=== PATIENT | male | born 1945 | race Caucasian/White ===

== ENCOUNTER → 2018-08-22 10:25 | Outpatient (CLI) | payer MEDICARE, SELFPAY ==
[2018-08-22 12:12] LABS: PSA,Total- Diagnostic 9.09 ng/mL (0.0-4.0)
== END ==
PROVIDERS: Family Provider Preventive Medicine Occupational Medicine; PCP Preventive Medicine Occupational Medicine; Referring Provider Urology; Visit Provider Urology
DX: C61 Malignant neoplasm of prostate (principal)
CPT/HCPCS: 36415; 84153

== ENCOUNTER → 2019-02-21 09:28 | Outpatient (CLI) | payer MEDICARE, SELFPAY ==
[2019-02-21 09:58] LABS: PSA,Total- Diagnostic 9.48 ng/mL (0.0-4.0)
== END ==
PROVIDERS: Family Provider Preventive Medicine Occupational Medicine; PCP Preventive Medicine Occupational Medicine; Referring Provider Urology; Visit Provider Urology
DX: C61 Malignant neoplasm of prostate (principal)
CPT/HCPCS: 36415; 84153

== ENCOUNTER → 2019-03-17 17:11 | Outpatient (CLI) | payer MEDICARE, SELFPAY ==
--- NOTE | 2019-03-17 08:00 | PROSBIL_PTH ---
PATIENT: CAMILA DELGADO LOC: [facility] U#:[id number] AGE/SX: 79/M ROOM: RE03/17/[address]: Dr. Neil Hatch MD : 1945 BED: DIS: SPEC #: [id number] RECD: 03/17/19 18:45 STATUS: KATHY REMilagros #: [id number] MADDY: 03/17/19 08:[address]: Neil Hatch DEPT: SURGICAL PATHOLOGY RECD BY: Timi Cleaning ENTERED: 03/18/19 08:21 SP TYPE: PROST BX OTHR DR: Dr. Andrei Staton DO Tissues: A - PROSTATE RIGHT B - PROSTATE RIGHT C - PROSTATE RIGHT D - PROSTATE LEFT E - PROSTATE LEFT F - PROSTATE LEFT Procedures: PROSTATE BX Comments: Dr. Hatch's office ([place]) notified of no specimen in container A 03/19/19 11:37 a.m. HEADER OPERATION: Prostate biopsy PRE-OP DIAGNOSIS: Elevated PSA TISSUE SUBMITTED: A - Right apex, B - Right mid, C - Right base, D - Left apex, E - Left mid, F - Left base MICROSCOPIC DIAGNOSIS A. Right prostate, apex, core biopsy: No specimen is found in the container. See comment. B. Right prostate, mid, core biopsy: Prostatic adenocarcinoma: Paolo grade: 3+3=6 Number of cores involved: 1/2 Proportion of tissue involved: ~20% Perineural invasion: Not identified. Greatest tumor length: 0.5 cm C. Right prostate, base, core biopsy: Prostatic adenocarcinoma: Paolo grade: 3+3=6 Number of cores involved: 1/2 Proportion of tissue involved: ~20% Perineural invasion: Not identified. Greatest tumor length: 0.5 cm D. Left prostate, apex, core biopsy: Prostatic tissue, negative for malignancy. Focal calcifications. E. Left prostate, mid, core biopsy: Prostatic tissue, negative for malignancy. Focal atrophy and calcifications. F. Left prostate, base, core biopsy: Prostatic tissue, negative for malignancy. SJ:smooth 03/19/19 COMMENT This information is conveyed to Dr. Hatch's office on 03/19/19. Case has been reviewed in consultation with Dr. Thomas who concurs with the above diagnosis. IDC:AM MICROSCOPIC DESCRIPTION Slides are reviewed. GROSS DESCRIPTION A - Received is one container designated prostate, right apex. No specimen is found in the container. B - Received is one container designated prostate, right mid. The specimen consists of two elongated fragments of light espinoza-white soft tissue measuring 1 and 2 cm in length and 0.1 cm in diameter. The specimen is totally submitted in one cassette. C - Received is one container designated prostate, right base. The specimen consists of two elongated fragments of light espinoza-white soft tissue measuring 1.2 and 2 cm in length and 0.1 cm in diameter. The specimen is totally submitted in one cassette. D - Received is one container designated prostate, left apex. The specimen consists of one elongated fragment of light espinoza-white soft tissue measuring 1.5 cm in length and 0.1 cm in diameter. The specimen is totally submitted in one cassette. E - Received is one container designated prostate, left mid. The specimen consists of one elongated fragment of light espinoza-white soft tissue measuring 1.5 cm in length and 0.1 cm in diameter. The specimen is totally submitted in one cassette. F - Received is one container designated prostate, left base. The specimen consists of two elongated fragments of light espinoza-white soft tissue measuring 0.7 and 1.5 cm in length and 0.1 cm in diameter. The specimen is totally submitted in one cassette. / SJ:rg 03/18/19 TC:0 [facility]: [id number] [phone]
== END ==
PROVIDERS: Family Provider Preventive Medicine Occupational Medicine; PCP Preventive Medicine Occupational Medicine; Referring Provider Urology; Visit Provider Urology
DX: R97.20 Elevated prostate specific antigen [PSA] (principal)
CPT/HCPCS: 88305; G0416

== ENCOUNTER → 2019-09-18 09:03 | Outpatient (CLI) | payer MEDICARE, SELFPAY ==
[2019-09-18 09:54] LABS: PSA,Total- Diagnostic 7.15 ng/mL (0.0-4.0)
== END ==
PROVIDERS: PCP Preventive Medicine Occupational Medicine; Referring Provider Urology; Visit Provider Urology
DX: C61 Malignant neoplasm of prostate (principal)
CPT/HCPCS: 36415; 84153

== ENCOUNTER → 2020-03-08 10:19 | Outpatient (CLI) | payer MEDICARE, SELFPAY | PROVIDERS: PCP Preventive Medicine Occupational Medicine; Referring Provider Urology; Visit Provider Urology | DX: C61 Malignant neoplasm of prostate (principal) | CPT/HCPCS: 36415; 84153 ==

== ENCOUNTER → 2020-09-06 09:57 | Outpatient (CLI) | payer MEDICARE, SELFPAY | PROVIDERS: PCP Preventive Medicine Occupational Medicine; Referring Provider Urology; Visit Provider Urology | DX: N40.1 Benign prostatic hyperplasia with lower urinary tract symptoms (principal) | CPT/HCPCS: 36415; 84153 ==

== ENCOUNTER → 2021-03-10 08:46 | Outpatient (CLI) | payer MEDICARE, SELFPAY | PROVIDERS: PCP Preventive Medicine Occupational Medicine; Referring Provider Urology; Visit Provider Urology | DX: C61 Malignant neoplasm of prostate (principal) | CPT/HCPCS: 36415; 84153 ==

== ENCOUNTER 2021-06-01 07:29 | Outpatient (CLI) | payer MEDICARE, SELFPAY ==
--- NOTE | 2021-06-01 07:36 | CT_ITS ---
STUDY: CT ABDOMEN AND PELVIS WITH AND WITHOUT CONTRAST REASON FOR EXAM: Male, 76 years old. GROSS HEMATURIA for 5 days. History of treated leukemia. RADIATION DOSAGE (If Supplied By Facility): CTDIvol = ( 25.75 ) mGy, DLP = ( 3404.71 ) mGycm TECHNIQUE: Transaxial images were obtained from the dome of the diaphragm to the symphysis pubis without oral contrast. IV 100mL Isovue-300 was administered. Sagittal and coronal images were reconstructed. Individualized dose optimization techniques were used for this CT. COMPARISON: None. FINDINGS: The visualized lung bases are unremarkable. The visualized portions of the heart are within normal limits. Normal liver. Normal gallbladder and extrahepatic biliary system. Normal spleen. Normal pancreas. Normal bilateral adrenal glands. Normal right kidney. Small left parapelvic cysts. Normal visualized stomach. Normal small intestine. There are scattered colonic diverticula consistent with diverticulosis. The appendix is visualized and appears normal. There is scattered atherosclerotic calcification of the abdominal aorta, without a demonstrated aneurysm. Normal inferior vena cava. Normal retroperitoneum. Normal urinary bladder. There is enlargement of the prostate gland. The prostate measures 4.6 x 4.7 cm. This causes indentation at the bladder base. Normal abdominal wall. There are diffuse degenerative changes of the visualized lumbar spine. CT/CT Abd/Pelvis W/WO Contrast IMPRESSION: Prostatic enlargement. Small left parapelvic renal cysts. Electronically Signed: Teofilo Cherry MD at 9:00 EST ,
[2021-06-01 07:45] LABS: CREATININE FINGERSTICK 0.9 mg/dL (0.70-1.30); EGFR FINGERSTICK > 60.0000 mL/min (>60)
== END 2021-06-01 23:59 | disposition short-term general hospital (02) ==
PROVIDERS: PCP Preventive Medicine Occupational Medicine; Referring Provider Urology; Visit Provider Urology
DX: R31.0 Gross hematuria (principal)
CPT/HCPCS: 74178; Q9967

== ENCOUNTER → 2021-09-08 | Outpatient (CLI) | payer MEDICARE, SELFPAY ==
[2021-09-08 10:29] LABS: PSA,Total - Annual Screen 6.66 ng/mL (0.00-4.00)
[2021-09-09 09:41] LABS: PSA,Total- Diagnostic 6.66 ng/mL (0.0-4.0)
== END | disposition home or self-care (01) ==
PROVIDERS: PCP Preventive Medicine Occupational Medicine; Referring Provider Urology; Visit Provider Urology
DX: R97.20 Elevated prostate specific antigen [PSA] (principal); R31.0 Gross hematuria; Z12.5 Encounter for screening for malignant neoplasm of prostate
CPT/HCPCS: 36415; 84153; 87086; 87088; 87186; G0103

== ENCOUNTER → 2021-09-19 | Outpatient (CLI) | payer MEDICARE, SELFPAY ==
--- NOTE | 2021-09-19 08:21 | EKG12_ITS ---
Test Reason : PREOP Blood Pressure : / mmHG Vent. Rate : 078 BPM Atrial Rate : 078 BPM P-R Int : 168 ms QRS Dur : 094 ms QT Int : 380 ms P-R-T Axes : 075 011 020 degrees QTc Int : 433 ms Sinus rhythm with Fusion complexes Otherwise normal ECG Confirmed by GABINO DURON, CRISTIAN ([id number]), editor & co founder ADALID PRUETT ([id number]) on 09/19/2021 11:32:24 AM Referred By: Neil Hatch Confirmed By:CRISTIAN LLOYD MD
[2021-09-19 09:14] LABS: Hematocrit 50.2 % (40-54); Hemoglobin 16.9 g/dL (13.0-16.5); Mean Corp Hgb Conc 33.7 g/dL (32-36); Mean Corpuscular Hgb 31.9 pg (27.0-32.0); Mean Corpuscular Volume 94.9 fL (80-94); Mean Platelet Vol. 9.8 fl (6.2-12.0); Platelet Count 229 K/mm3 (150-450); RBC Distribution Width CV 14.7 % (11.6-14.6); RBC Distribution Width SD 51.9 fl (35.1-43.9); Red Blood Count 5.29 M/mm3 (4.6-6.2); White Blood Count 7.6 K/mm3 (4.4-11.0)
[2021-09-19 09:50] LABS: Anion Gap 6 (5-15); BUN 23 mg/dL (7-18); BUN/Creat Ratio 28.2 RATIO (10-20); Calcium,Total 8.8 mg/dL (8.5-10.1); Chloride 108 mmol/L (98-107); Creatinine, Serum 0.82 mg/dL (0.70-1.30); EST Glomerular Filtration Rate 97 mL/min (>60); Est Glom Filt Rate - Afr Amer 118 mL/min (>60); Glucose 112 mg/dL (74-106); Potassium 3.8 mmol/L (3.5-5.1); Sodium Level 139 mmol/L (136-145)
[2021-09-21 11:25] VITALS: BP 154/101; PULSE 81; RESP 16; TEMP 37.3; O2SAT 98; BMI 33.2
[2021-09-21] MEDS: Lactated Ringers 1,000 ML 15 ML IV (11:29)
--- NOTE | 2021-09-21 11:59 | SUR.PREOP ---
surgery canceled d/t elevated bp. anesthesia has talked with pt and pt is to follow up with his pcp
== END | disposition home or self-care (01) ==
LOC: AC 09-21 11:58 → PAT 10-12 13:40
PROVIDERS: Anesthesiology; PCP Preventive Medicine Occupational Medicine; Referring Provider Urology; Visit Provider Urology
DX: Z01.812 Encounter for preprocedural laboratory examination (principal); Z53.8 Procedure and treatment not carried out for other reasons
CPT/HCPCS: 36415; 80048; 85027; 93005; J7120; J2405

== ENCOUNTER → 2022-08-14 | Outpatient (CLI) | payer MEDICARE, SELFPAY | END | disposition home or self-care (01) | LOC: LAB 13:57 | PROVIDERS: PCP Preventive Medicine Occupational Medicine; Referring Provider Urology; Visit Provider Urology | DX: C61 Malignant neoplasm of prostate (principal) | CPT/HCPCS: 36415; 84153 ==

== ENCOUNTER → 2022-08-28 | Outpatient (CLI) | payer MEDICARE, SELFPAY ==
--- NOTE | 2022-08-28 06:44 | MRI_ITS ---
ACR Level 3 findings have been noted. An addendum which confirms receipt of the report will follow. STUDY: MR PELVIS WITH AND WITHOUT CONTRAST (PROSTATE) REASON FOR EXAM: Male, 77 years old. Elevated PSA TECHNIQUE: Standardized multiparametric prostate MRI with T1, T2, DWI/ADC sequences were obtained in 3 orthogonal planes, and dynamic contrast enhancement sequences. 20 ml of clariscan contrast material was administered intravenously for the contrast portion of the examination. COMPARISON: None. FINDINGS: The prostate volume measures 32 mm3. The contours of the prostate gland are lobulated. There is not significant mass effect on the bladder base. The transition zone is heterogenous. PI-RADS DWI score 5 - Focal markedly hypointense on ADC and markedly hyperintense on high b-value DWI; > 1.5 cm on axial. PI-RADS T2W score 5 - Non-circumscribed, homogeneous, moderately hypointense, and >1.5 cm in greatest dimension. Contrast enhancement (+) Focal, earlier or contemporaneous with enhancement of adjacent normal prostatic tissues, and corresponding to a suspicious finding on T2WI and/or DWI. Nodule measures 1.6 x 1.8 cm in the right mid transitional zone on image 18 of series 8 and image 16 of series 600/601. The peripheral zone is homogenous. PI-RADS DWI score 2 - Linear/wedge shaped hypointense on ADC and/or linear/wedge shaped hyperintense on high b-value DWI. PI-RADS T2W score 2 - Linear, wedge-shaped, or diffuse mild hypointensity, usually with indistinct margin. Contrast enhancement no early or contemporaneous enhancement; or diffuse multifocal enhancement NOT corresponding to a focal finding on T2W and/or DWI or focal enhancement responding to a lesion demonstrating features of BPH onT2WI (including features of extruded BPH in the PZ). The seminal vesicles demonstrate normal margins and T2 signal pattern. No mass lesion or invasion depicted. The rectoprostatic angles are normal. Urinary bladder is normal without wall thickening. The vascular structures of the are normal. The visualized hollow viscus structures are normal. No bone marrow edema or mass lesion depicted. MRI/Pelvis W/WO Contrast IMPRESSION: 1. PIRADS v2.1 2019 -- 5 - Very high (clinically significant cancer is highly likely). Electronically Signed: Gustabo Weiner ([place]), at 12:52 EDT Reading Location ID and State: [address] [place] [address] , Service support ,
[2022-08-28 07:05] LABS: CREATININE FINGERSTICK 1.2 mg/dL (0.70-1.30); EGFR FINGERSTICK > 60.0000 mL/min (>60)
== END | disposition home or self-care (01) ==
PROVIDERS: PCP Preventive Medicine Occupational Medicine; Referring Provider Urology; Visit Provider Urology
DX: R97.20 Elevated prostate specific antigen [PSA] (principal)
CPT/HCPCS: 72197; A9575

== ENCOUNTER → 2022-09-19 | Outpatient (CLI) | payer MEDICARE, SELFPAY ==
--- NOTE | 2022-09-18 | IMM_PTH ---
PATIENT: CAMILA DELGADO LOC: [facility] U#:[id number] AGE/SX: 77/M ROOM: RE09/19/[address]: Dr. Neil Hatch MD : 1945 BED: DIS: 09/19/2022 SPEC #: [id number] RECD: 09/20/22 11:32 STATUS: KATHY REQ #: [id number] MADDY: 09/18/22 00:[address]: Neil Hatch DEPT: IMMUNOHISTOCHEMISTRY RECD BY: Jordyn Dickey ENTERED: 09/20/22 11:33 SP TYPE: IMMUNO OTHR DR: Dr. Andrei Staton DO Tissues: C - PROSTATE RIGHT Procedures: P40 (add) 34BE12 (initial) PHYSICIAN & INSTITUTION [place] [id number] SPECIMEN INFORMATION: Tissue Source: C - Right prostate, base, core biopsy Clinical Info: Elevated PSA Specimen Number: [id number] CPT code: 56689, 28580 METHODOLOGY: Deparaffinized sections of prefer/formalin-fixed tissue or PAP/DQ stained slides are incubated with monoclonal/polyclonal antibodies/oligonucleotide probes. Localization is made via biotin free immunoperoxidase method. Appropriate controls are performed and reacted as expected. Results on target cell population are indicated in the following table: RESULTS: ANTIBODY / CLONE RESULT Block C P40 (BC28) positive 34BE12 (34BE12) positive These tests were developed and their performance characteristics determined by [facility]. They may not have been cleared or approved by the U.S. Food and Drug Administration. The FDA has determined that such clearance or approval is not necessary. The above immunohistochemical/dualISH markers are ordered and reviewed by the Pathologist. INTERPRETATION: C. Right prostate, base, core biopsy: Negative for malignancy. YURI:smooth 09/21/2022
--- NOTE | 2022-09-18 08:15 | PROSBIL_PTH ---
PATIENT: CAMILA DELGADO LOC: [facility] U#:[id number] AGE/SX: 77/M ROOM: RE09/19/[address]: Dr. Neil Hatch MD : 1945 BED: DIS: 09/19/2022 SPEC #: [id number] RECD: 09/19/22 11:44 STATUS: KATHY REQ #: [id number] MADDY: 09/18/22 08:[address]: Neil Hatch DEPT: SURGICAL PATHOLOGY RECD BY: Corinne Arrington ENTERED: 09/19/22 11:45 SP TYPE: PROST BX SHERRY DR: Dr. Andrei Staton DO Tissues: A - PROSTATE RIGHT B - PROSTATE RIGHT C - PROSTATE RIGHT D - PROSTATE LEFT E - PROSTATE LEFT F - PROSTATE LEFT Procedures: PROSTATE BX HEADER OPERATION: Prostate biopsy PRE-OP DIAGNOSIS: Elevated PSA TISSUE SUBMITTED: A - Right apex, B - Right mid, C - Right base, D - Left apex, E - Left mid, F - Left base MICROSCOPIC DIAGNOSIS A. Right prostate, apex, core biopsy: Prostatic adenocarcinoma. [place] grade: 3+4=7 Number of cores involved: 3/3 Proportion of tissue involved: 60-70% Perineural invasion: Not identified. Greatest tumor length: 1.2 cm B. Right prostate, mid, core biopsy: Prostatic adenocarcinoma. Paolo grade: 3+4=7 Number of cores involved: 2/2 Proportion of tissue involved: ~60% Perineural invasion: Not identified. Greatest tumor length: 1.0 cm C. Right prostate, base, core biopsy: Prostatic tissue, negative for malignancy. See comment. D. Left prostate, apex, core biopsy: Prostatic tissue, negative for malignancy. Focal mild chronic inflammation. E. Left prostate, mid, core biopsy: Prostatic tissue, negative for malignancy. Focal mild acute and chronic inflammation. F. Left prostate, base, core biopsy: Prostatic tissue, negative for malignancy. Focal mild chronic inflammation. SJ:smooth 09/20/2022 COMMENT C. Immunohistochemistry ([id number]) supports the above diagnosis. Case has been reviewed in consultation with Dr. Thomas who concurs with the above diagnosis. IDC:AM MICROSCOPIC DESCRIPTION Slides are reviewed. GROSS DESCRIPTION A - Received is one container designated prostate, right apex. The specimen consists of three elongated fragments of light espinoza-white soft tissue measuring 1.5 to 2.0 cm in length and 0.1 cm in diameter. The specimen is totally submitted in one cassette. B - Received is one container designated prostate, right mid. The specimen consists of two elongated fragments of light espinoza-white soft tissue measuring 1.5 to 2.0 cm in length and 0.1 cm in diameter. The specimen is totally submitted in one cassette. C - Received is one container designated prostate, right base. The specimen consists of two elongated fragments of light espinoza-white soft tissue each measuring 1.5 cm in length and 0.1 cm in diameter. The specimen is totally submitted in one cassette. D - Received is one container designated prostate, left apex. The specimen consists of one elongated fragment of light espinoza-white soft tissue measuring 1.2 cm in length and 0.1 cm in diameter. The specimen is totally submitted in one cassette. E - Received is one container designated prostate, left mid. The specimen consists of one elongated fragment of light espinoza-white soft tissue measuring 1.5 cm in length and 0.1 cm in diameter. The specimen is totally submitted in one cassette. F - Received is one container designated prostate, left base. The specimen consists of one elongated fragment of light espinoza-white soft tissue measuring 1.5 cm in length and 0.1 cm in diameter. The specimen is totally submitted in one cassette. / SJ:smooth 09/19/2022 TC:0 CPT: G0146
== END | disposition home or self-care (01) ==
PROVIDERS: PCP Preventive Medicine Occupational Medicine; Visit Provider Urology
DX: R97.20 Elevated prostate specific antigen [PSA] (principal)
CPT/HCPCS: 88305; 88341; 88342; G0416

== ENCOUNTER 2022-11-22 05:56 | Day surgery (SDC) | payer MEDICARE, SELFPAY ==
[2022-11-16 08:24] LABS: Hematocrit 53.1 % (40-54); Hemoglobin 17.7 g/dL (13.0-16.5); Mean Corp Hgb Conc 33.3 g/dL (32-36); Mean Corpuscular Hgb 32.1 pg (27.0-32.0); Mean Corpuscular Volume 96.2 fL (80-94); Mean Platelet Vol. 9.9 fl (6.2-12.0); Platelet Count 248 K/mm3 (150-450); RBC Distribution Width CV 14.7 % (11.6-14.6); RBC Distribution Width SD 52.4 fl (35.1-43.9); Red Blood Count 5.52 M/mm3 (4.6-6.2); White Blood Count 9.2 K/mm3 (4.4-11.0)
[2022-11-16 08:53] LABS: Anion Gap 5 (5-15); BUN 29 mg/dL (7-18); BUN/Creat Ratio 31.6 RATIO (10-20); Chloride 110 mmol/L (98-107); Creatinine, Serum 0.92 mg/dL (0.70-1.30); EST Glomerular Filtration Rate 85 mL/min (>60); Est Glom Filt Rate - Afr Amer 103 mL/min (>60); Glucose 107 mg/dL (74-106); Potassium 3.8 mmol/L (3.5-5.1); Sodium Level 142 mmol/L (136-145)
[2022-11-22 06:49] VITALS: BP 145/76; PULSE 72; RESP 16; TEMP 37.3; O2SAT 99; BMI 32.9
[2022-11-22] MEDS: Lactated Ringers 1,000 ML 15 ML IV (07:11)
[2022-11-22] MEDS: Lactated Ringers 1,000 ML 30 ML IV (07:11)
--- NOTE | 2022-11-22 07:12 | HP.PCM_ITS ---
HPI - General General Date of Admission: 11/22/22 Chief Complaint: Prostate cancer HPI Narrative CAMILA DELGADO, is a 77 M who presents for radical prostatectomy and bilateral lymph node dissection [facility] Medical History Alcohol use Arthritis Back pain Cancer History of diverticulitis History of edema History of irregular heartbeat History of pain when walking History of stress test Loss of hearing Non-smoker Prostate disease Syncope Wears glasses Home Medications diltiazem HCl 240 mg capsule,extended release 24 hr 240 mg PO QHS 11/14/22 [History Last Taken 11/22/22] lisinopril 20 mg tablet 40 mg PO DAILY 11/14/22 [History Last Taken 11/22/22] acetaminophen 325 mg capsule (Tylenol) 650 mg PO Q4H PRN pain 11/22/22 [History Last Taken 11/21/22] ciprofloxacin HCl 500 mg tablet 500 mg PO BID #14 tabs 11/22/22 [Rx Last Taken Unknown] docusate sodium 100 mg capsule (Colace) 100 mg PO BID #20 caps 11/22/22 [Rx Last Taken Unknown] oxycodone 5 mg tablet 5 mg PO Q6H PRN pain 3 days #14 tabs 11/22/22 [Rx Last Taken Unknown] Allergy/AdvReac Type Severity Reaction Status Date / Time No Known Allergies Allergy Verified 11/14/22 11:32 Surgical History History of dental surgery History of transurethral resection of prostate Hx of colonoscopy Hx of detached retina repair Hx of left cataract extraction Hx of right cataract extraction Social History Smoking Status: Never smoker ROS Constitutional Constitutional: Denies chills, fever(s) or malaise Eyes Eyes: Denies blurry vision or change in vision ENT HEENT: Reports none Cardiovascular Cardiovascular: Denies chest pain or palpitations Respiratory/Chest Respiratory/Chest: Denies cough or shortness of breath with exertion Gastrointestinal Gastrointestinal: Denies abdominal pain, constipation or diarrhea Musculoskeletal Musculoskeletal: Denies back pain, joint stiffness or joint swelling Integumentary Integumentary: Denies dry skin, jaundice, lesions or rash Neurologic Neurologic: Denies confusion, syncope or weakness Psychiatric Psychiatric: Reports none; Denies anxiety or depression Endocrine Endocrinology: Denies excessive sweating, fatigue or flushing Hematologic/Lymphatic Hematologic/Lymphatic: Denies anemia, easy bleeding or easy bruising Vital Signs Vital Signs Vital Signs: 11/22/22 06:49 11/22/22 06:49 Temperature 99.2 F H Temperature Source Temporal Pulse Rate 72 Respiratory Rate 16 Respiratory Pattern Normal Blood Pressure 145/76 H Blood Pressure Mean 99 Blood Pressure Source Monitor Blood Pressure Position Semi-Fowlers Blood Pressure Location Right Arm Pulse Ox 99 Oxygen Delivery Method Room Air Weight Weight: 101.151 kg Body Mass Index (BMI) 32.9 Physical Exam Const alert and oriented x3 General Appearance: cooperative HEENT normocephalic and head/scalp atraumatic Eyes PERRL and EOMs intact bilaterally Neck supple, no JVD and no carotid bruits Resp normal respiratory effort, normal air movement and clear to auscultation bilaterally Cardio regular rate and no murmurs GI normal to inspection, nondistended, normoactive bowel sounds and soft to palpation Extremity normal capillary refill General Extremity: no tenderness to palpation of joints or extremities; Negative for edema Skin no rashes or lesions noted and no wounds General Skin Exam: no breakdown Neuro CN's II-XII intact bilaterally Psych affect normal Appearance: appropriate Results Lab / Micro Data 11/16/22 07:49 11/16/22 07:49 Assessment & Plan Assessment/Plan (1) Malignant neoplasm of prostate: PLAN: Plan for radical prostatectomy and bilateral lymph node dissection.
--- NOTE | 2022-11-22 07:13 | PCM.DC ---
Discharge Instructions Diet Discharge Diet: No restrictions and Light diet - advance as tolerated Activity Discharge Activity: May Not Drive May shower in (days): 1 Dressing / Incision Call your doctor if you observe: Fever of 101 or Higher Catheter: Tam to leg bag and Tam to large bag Drain: [place] Follow Up Care Please Follow Up With: Neil Hatch MD When: 2 weeks Test Results: Test results from this visit will be discussed in further detail at your follow-up appointment, if applicable. Discharge Plan Admission Primary Reason for Your Visit: Radical Prostatecomy Attending Provider: Neil Hatch Primary Care Provider: Andrei Staton Discharge Orders/Prescriptions Prescriptions: New oxycodone 5 mg tablet 5 mg PO Q6H PRN (Reason: pain) 3 Days Qty: 14 0RF ciprofloxacin HCl 500 mg tablet 500 mg PO BID Qty: 14 0RF docusate sodium [Colace] 100 mg capsule 100 mg PO BID Qty: 20 0RF Continued diltiazem HCl 240 mg capsule,extended release 24hr 240 mg PO QHS Patient Comments: TAKE ONE CAPSULE BY MOUTH EVERY DAY lisinopril 20 mg tablet 40 mg PO DAILY Patient Comments: TAKE ONE TABLET BY MOUTH EVERY DAY acetaminophen [Tylenol] 325 mg capsule 650 mg PO Q4H PRN (Reason: pain) Referrals / Follow Up: Neil Hatch MD [Med Staff - Active Staff] - Andrei Staton DO [Primary Care Provider] - Disposition Disposition (needs filled in before D/C Order can be placed): Home, Self Care
[2022-11-22] MEDS: Cefazolin 2 GM in 0.9% Normal Saline 100 ML IV (07:32)
[2022-11-22] MEDS: Bupivacaine Mpf 0.5% 30 ML VIAL (08:52)
--- NOTE | 2022-11-22 08:55 | PCM.OPRPT ---
Report of Operation Date of Procedure: 11/22/22 Pre-Operative Diagnosis: Prostate cancer Post-Operative Diagnosis: The same Surgery/Procedure Performed:: Aborted robotic prostatectomy Description of Surgical Findings:: This is a 77-year-old male who desired to have a radical prostatectomy for curative intent for prostate cancer. He was taken back to the operating room at the smooth induction of general anesthesia he was placed supine on the table we made an incision in the midline abdomen placed the camera port right port left arm port and the camera port air seal port. Then the robot was docked he was a very obese male but was an extremely obese BMI was 32 but had a lot of flap he tissue. I tried to retract the colon out of the pelvis to do a posterior dissection but it was too collapsed could not get the space right could not could not get the colon retracted completely I went posterior to the bladder was only able to dissect out the right seminal vesicle and the vas deferens but I was not able to even do a complete dissection so I decided to drop the bladder and attempt anterior approach I then dropped the bladder and put the bladder on traction and then ran into immediate problem that there was a very large pubic osteophyte the the pubic osteophyte bone structure was so big that is blocking the entire view of the prostate I was having to work my way around this to even get to the prostate I started to dissect the edges of the prostate and then decided that with this osteophyte in the middle it was good to be literally impossible to stitch the dorsal vein complex and because I would be able to see it and then also be been possible later on to do the anastomosis between the bladder and the urethra because of his large osteophyte was going obscure the view completely so at this point decided to abort the procedure. We then tacked the bladder flap back up with a suture using 2 oh V-Loc stitch and then we removal of the ports closed the ports under direct visualization remove the catheter and the patient anesthetic was reversed and he will go home today to have him see radiation oncology to get radiation treatments of the prostate since robotic prostatectomy it was not feasible. Surgeon: Neil Hatch Type of Anesthesia: General Drains: none Estimated Blood Loss (mL): 0 Admit VTE Documentation VTE Present on Admission: No VTE Mechan Device Prophylaxis: SCD's VTE Pharm Prophylaxis ordered?: No Reason prophylaxis not ordered:: Medical Contraindication
[2022-11-22 09:07] VITALS: BP 129/84; BP 145/76; PULSE 68; RESP 16; TEMP 37.3; O2SAT 96
[2022-11-22 09:15] VITALS: BP 126/73; BP 145/76; PULSE 60; RESP 16; O2SAT 93
[2022-11-22 09:30] VITALS: BP 132/77; BP 145/76; PULSE 63; RESP 16; O2SAT 94
[2022-11-22 09:36] VITALS: BP 144/80; BP 145/76; PULSE 68; RESP 16; TEMP 37.2; O2SAT 95
[2022-11-22] MEDS: Acetaminophen 325 MG Tablet PO (10:30)
[2022-11-22 10:40] VITALS: BP 135/71; BP 145/76; PULSE 72; RESP 16; TEMP 36.6; O2SAT 92
== END 2022-11-22 10:56 | disposition home or self-care (01) ==
LOC: SDC 05:59 → AC 06:00
PROVIDERS: Anesthesiology; PCP Preventive Medicine Occupational Medicine; Referring Provider Urology; Visit Provider Urology
PROC: 0VT04ZZ Resection of Prostate, Percutaneous Endoscopic Approach (ICD-10-PCS; CPT 55866; principal; 2022-11-22 07:10)
DX: C61 Malignant neoplasm of prostate (principal); I10 Essential (primary) hypertension; E66.9 Obesity, unspecified; Z79.899 Other long term (current) drug therapy; Z68.32 Body mass index [BMI] 32.0-32.9, adult
CPT/HCPCS: 55866; 00865; 36415; 80048; 85027; 86850; 86900; 86901; 93005; J7120; J0744; J2405

== ENCOUNTER → 2023-09-10 | Outpatient (CLI) | payer MEDICARE, SELFPAY ==
[2023-09-10 11:20] LABS: PSA,Total- Diagnostic 0.01 ng/mL (0.0-4.0)
== END | disposition home or self-care (01) ==
PROVIDERS: PCP Preventive Medicine Occupational Medicine; Referring Provider Urology; Visit Provider Urology
DX: R97.20 Elevated prostate specific antigen [PSA] (principal)
CPT/HCPCS: 36415; 84153

== ENCOUNTER 2025-01-07 08:04 | Observation (INO) | payer MEDICARE, SELFPAY ==
--- NOTE | 2025-01-05 14:09 | PAT.ANE_ITS ---
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 When Was Last Pacemaker Check QUESTION #4 FULL TEXT: You/Your Family Experience fever (hyperthermia) with Anesthesia Last Oral Intake Last Oral intake: Last Oral Intake NPO since Meds taken in AM with sips of water? 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 Female No 12/26/24 13:03 HX of Motion Sickness No 12/26/24 13:03 HX of N/V After Surgery No 12/26/24 13:03 Non-Smoker Yes 12/26/24 13:03 Duration of Surgery greater Yes 12/26/24 13:03 than 60 minutes Number of Risk Factors 2 12/26/24 13:03 PONV Score Moderate Risk 12/26/24 13:03 Height & Weight Height & Weight: Anesthesia: Height & Weight Height 5 ft 9 in 11/22/22 06:49 Respiratory Assessment Respiratory Assessment - converter operator: Respiratory Tract Infection Hx - converter operator Hx Respiratory Tract Infection No 12/26/24 13:03 STOP Sleep Apnea STOP Sleep Apnea - converter operator: STOP Sleep Apnea - converter operator Hx Hypertension Yes: CONTROLLED WITH MED 12/26/24 13:03 Hx Sleep Apnea No 12/26/24 13:03 CPAP No 12/26/24 13:03 BIPAP Do you snore loudly (louder No 12/26/24 13:03 than talking or can be heard Do you often feel tired/ Yes 12/26/24 13:03 fatigued/ sleepy during daytime? Has anyone observed you stop No 12/26/24 13:03 breathing during sleep? STOP Results Positive 12/26/24 13:03 QUESTION #5 FULL TEXT : Do you snore loudly (louder than talking or can be heard through closed doors)? 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 Specify any problems Hx of Preganancy in last 3 N/A 12/26/24 13:03 Months Nurse Filling Out Transfusion DSCHRIBER 12/26/24 13:03 & Questions: Date: 12/26/24 12/26/24 13:03 Time: 13:04 12/26/24 13:03 Patient unable to answer at this time (ie. confused, unrespo /Reproduction History /Reproductive History - converter operator: /Reproductive Hx- converter operator Hx Now No 12/26/24 13:03 Gestational Age (in weeks): EDC: Hx Hx Para Hx Section SAB No 12/26/24 13:03 [facility] Medical History (Updated 12/26/24 @ 13:13 by Margaux Davila) Bladder disease Shortness of breath on exertion Hypertension Wears glasses Syncope Loss of hearing Alcohol use Cancer Arthritis Prostate disease Back pain History of diverticulitis Non-smoker History of pain when walking History of edema History of stress test History of irregular heartbeat Home Medications ?Medication ?Instructions ?Recorded ?Last Taken ?Type diltiazem HCl 240 mg 240 mg PO DAILY BP 11/14/22 11/22/22 History capsule,extended release 24 hr lisinopril 20 mg tablet 40 mg PO QHS BP 11/14/22 History atorvastatin 20 mg tablet (Lipitor) 20 mg PO QHS GISELL STEROL 12/26/24 Unknown History multivitamin (Daily Multi-Vitamin 1 tab PO DAILY SUPPL EMENT 12/26/24 Unknown History tablet) Allergy/AdvReac Type Severity Reaction Status Date / Time No Known Allergies Allergy Verified 12/26/24 12:59 Surgical History (Updated 12/26/24 @ 13:26 by Margaux Davila) Hx of detached retina repair History of transurethral resection of prostate Hx of right cataract extraction Hx of left cataract extraction Hx of colonoscopy History of dental surgery Social History Smoking Status: Never smoker Audit: Pertinent Findings Pertinent Findings EKG Perinent findings: EKG November 16, 2022. Sinus rhythm with PVCs and PACs Stress test pertinent findings: Stress test 07/24/2023. Impression. EKG portion of the Lexiscan stress test is negative for inducible ischemia. No evidence of Lexiscan induced myocardial ischemia or infarction. LV EF is 64% Recommendation Anesthesia Recommendation Anesthesia recommendation: OPTIMIZED for anesthesia
[2025-01-07] VITALS (14 sets, daily range): BP systolic 109–155; BP diastolic 61–85; PULSE 60–82; RESP 16–18; TEMP 36.1–37; O2SAT 94–98; BMI 34.2; BMI 34.9
--- OUTSIDE RECORDS SUMMARY | 2025-01-07 06:09 | XMS RPT_ITS | CCD ---
Author Organization [facility] CliniSytn Care Team Providers Care Demolition Hammer Operator Name Role Phone Dr. Bimal Staton Primary Care Provider Dr. Vicente Menard Attending Provider [phone] Dr. Neil Quick Referring Provider BIMAL STATON DO Primary Care Physician [phone] BIMAL STATON DO Primary Care Physician [phone] BIMAL STATON DO Attending Unavailable EZEKIEL GARSIA, BIMAL Primary Care Unavailable KOSTAS MORTON MD Attending Unavailable EZEKIEL GARSIA, BIMAL Primary Care Unavailable EZEKIEL GARSIA, BIMAL Primary Care Unavailable EZEKIEL GARSIA, BIMAL Attending Unavailable EZEKIEL GARSIA, BIMAL Primary Care Unavailable JULIA QUINONES PA-C Attending Unavailzamzam HINOJOSASAY DO, BIMAL Primary Care Unavailable GWEN DIGITAL PRODUCER-JOAN, JESSICA Baugh Attending Rina vailable EZEKIEL GARSIA, BIMAL Primary Care Unavailable EZEKIEL GARSIA, BIMAL Attending Unavailable EZEKIEL GARSIA, BIMAL Primary Care Unavailable SAGE DIGITAL PRODUCER-JOAN, CHAR Keith Attending Rina vailable EZEKIEL GARSIA, BIMAL Attending Unavailable EZEKIEL GRASIA, BIMAL Primary Care Unavailable EZEKIEL GARSIA, BIMAL Primary Care Unavailable JULIA QUINONES PA-C Attending Unavailabl e EZEKIEL DO, BIMAL Attending Unavailable EZEKIEL GARSIA, BIMAL Primary Care Unavailable GWEN DIGITAL PRODUCER-JOAN, JESSICA Baugh Attending Rina vailable FISH DIGITAL PRODUCER-DRIVER TRAINEE, HERB Primary Care Sharif QUICK MD, DR NEIL YBARRA Attending Cheriei marilou WHITTEN APRN-JOAN, HERB Primary Care Sharif QUICK MD, DR NEIL YBARRA Attending Sharif ARCHULETA, HERB Primary Care BIMAL Vazquez DO Primary Care Unavailable EZEKIEL DO, BIMAL Attending Unavailable PHYSICIAN, NONE Attending Unavailable BIMAL STATON DO Primary Care Unavailable PHYSICIAN, NONE Attending Unavailable BIMAL STATON DO Primary Care Unavailable FISH BRISENO-DRIVER TRAINEE, HERB Primary Care Sharif WORLEYDRIVER TRAINEE, HERB Attending Neil Mario Admitting Unavailable Mamie, Neil Ybarra Attending Unavailable Neil Quick Referring Unavailable HERB WHITTEN Primary Care Unavailable Medications Current Medications Medication Drug Class(es) Dates Sig (Normalized) Sig (Original) ascorbic acid 500 mg oral tablet (4 sources) Vitamin C Start: 09-15-2021 take 1 tablet by mouth once daily Ascorbic Acid (Vitamin C) (Vitamin C) 500 mg Tablet Active 500 MG PO DAILY September 15, 2021 12:00am Calcium (3 sources) Phosphate Binder, Calcium Start: 01-10-2023 calcium (as carbonate) [address] Quick, 0 Refill(s) Start Date: 01/10/23 Status: Ordered cephalexin 500 mg oral capsule (4 sources) Cephalosporin Antibacterial Start: 09-15-2021 take 500 mg by mouth twice daily Cephalexin Active 500 MG PO TWICE A DAY September 15, 2021 12:00am cholecalciferol 0.025 mg oral capsule (4 sources) Vitamin D Start: 09-15-2021 take 1 capsule by mouth once daily Cholecalciferol (Vitamin D3) (Vitamin D3) 25 mcg (1,000 unit) Capsule Active 25 MCG PO DAILY September 15, 2021 12:00am 24 hr dilTIAZem hydrochloride 240 mg extended release oral capsule (7 sources) Calcium Channel Sanya Start: 03-12-2024 take 1 capsule by mouth every hour, then take 1 capsule by mouth once daily dilTIAZem 240 mg/24 hours oral capsule, extended release Dose : 240 mg = 1 cap(s), Oral, qDay, # 90 cap(s), 3 Refill(s), [facility]: [facility], Hypertension, essential, 172, cm, 01/16/24 13:37:00 EDT, Height, kg, 01/16/24 13:37:00 EDT, Dosing Weight Start Date: 03/12/24 Status: Ordered Quantity: 90.0 Unit: cap(s) Repeat number: 4 Indication: Essential (primary) hypertension Start: 01-10-2023 take 1 capsule by mo uth every hour, then take 1 capsule by mouth once daily dilTIAZem 240 mg/24 hours oral capsule, extended release Dose : 240 mg = 1 cap(s), Oral, qDay, # 90 cap(s), 3 Refill(s), [facility]: [facility], Hypertension, essential, 174, cm, 01/10/23 12:58:00 EDT, Height, kg, 01/10/23 12:58:00 EDT, Dosing Weight Start Date: 01/10/23 Status: Ordered Start: 04-20-2022 take 1 capsule by tx uth every hour, then take 1 capsule by mouth once daily dilTIAZem 240 mg/24 hours oral capsule, extended release Dose : 240 mg = 1 cap(s), Oral, qDay, # 90 cap(s), 3 Refill(s), [facility]: [facility], Hypertension, essential, 173, cm, 01/04/22 10:05:00 EDT, Height, kg, 01/04/22 10:05:00 EDT, Dosing Weight Start Date: 04/20/22 Status: Ordered Fish Oils (1 source) Start: 08-17-2015 take 1000 mg by mouth once daily Fish Oil 1,000 mg, Oral, qDay, 0 Refill(s) Start Date: 08/17/15 Status: Ordered hydroCHLOROthiazide 25 mg / triamterene 37.5 mg oral tablet (4 sources) Potassium-spari ng Diuretic, Thiazide Diuretic Start: 04-16-2024 take 1 tablet by mouth once daily as needed hydrochlorothia zide-triamteren e 25 mg-37.5 mg oral tablet Dose = 1 tab(s), Oral, Daily, PRN Swelling, # 90 tab(s), 0 Refill(s), [facility]: [facility], Edema of leg, 173.5, cm, 04/16/24 13:22:00 EST, Height, kg, 04/16/24 13:22:00 EST, Dosing Weight Start Date: 04/16/24 Status: Ordered Quantity: 90.0 Unit: tab(s) Repeat number: 1 Indication: Localized edema Start: 04-18-2023 take 1 tablet by mouth once daily as needed hydrochlorothiazide-triamterene 25 mg-37 .5 mg oral tablet Dose = 1 tab(s), Oral, Daily, PRN Swelling, # 30 tab(s), 2 Refill(s), [facility]: [facility], Edema of leg, 173.5, cm, 04/18/23 15:12:00 EST, Height, kg, 04/18/23 15:12:00 EST, Dosing Weight Start Date: 04/18/23 Status: Ordered ibuprofen 400 mg oral tablet (7 sources) Nonsteroidal Anti-inflammatory Drug Start: 06-23-2015 take 1 dose by mouth every six hours as needed for pain Motrin Dose : 400 mg =, Oral, q6hr, PRN as needed for pain Start Date: 06/23/15 Status: Ordered Repeat number: 1 lisinopril 40 mg oral tablet (7 sources) Angiotensin Converting Enzyme Inhibitor Start: 12-19-2023 lisinopril 40 mg oral tablet Dose : 40 mg = 1 tab(s), Oral, qDay, # 90 tab(s), 3 Refill(s), [facility]: [facility], 172, cm, 12/19/23 16:30:00 EDT, Height, kg, 12/19/23 16:30:00 EDT, Dosing Weight Start Date: 12/19/23 Status: Ordered Quantity: 90.0 Unit: tab(s) Repeat number: 4 Start: 01-10-2023 lisinopril 40 mg oral tablet Dose : 40 mg = 1 tab(s), Oral, qDay, # 90 tab(s), 3 Refill(s), [facility]: [facility], 174, cm, 01/10/23 12:58:00 EDT, Height, kg, 01/10/23 12:58:00 EDT, Dosing Weight Start Date: 01/10/23 Status: Ordered Start: 05-23-2022 lisinopril 40 mg oral tablet Dose : 40 mg = 1 tab(s), Oral, qDay, # 90 tab(s), 3 Refill(s), [facility]: [facility], 173, cm, 01/04/22 10:05:00 EDT, Height, kg, 01/04/22 10:05:00 EDT, Dosing Weight Start Date: 05/23/22 Status: Ordered Multivitamin preparation (6 sources) Start: 01-10-2023 take 1 tablet by mouth once daily Multivitamin Dose = 1 tab(s), Oral, Daily, 0 Refill(s) Start Date: 01/10/23 Status: Ordered Repeat number: 1 Start: 01-10-2023 take 1 tablet by nacho th once daily Multivitamin Dose = 1 tab(s), Oral, Daily, 0 Refill(s) Start Date: 01/10/23 Status: Ordered 24 hr oxybutynin chloride 10 mg extended release oral tablet (2 sources) Cholinergic Muscarinic Antagonist Start: 06-20-2023 take 1 tablet by mouth every hour, then take 1 tablet by mouth once daily oxybutynin 10 mg/24 hr oral tablet, extended release Dose : 10 mg = 1 tab(s), Oral, qDay, # 30 tab(s), 2 Refill(s), [facility]: [facility], Adenocarcinoma of prostate, 175.3, cm, 06/01/23 10:05:00 EST, Height, kg, 06/20/23 8:27:00 EST, Dosing Weight Start Date: 06/20/23 Status: Ordered predniSONE 20 mg oral tablet (2 sources) Start: 12-19-2023 take 3 tablets by mouth once daily, then take 2 tablets by mouth once daily, then take 1 tablet by mouth once daily predniSONE 20 mg oral tablet See Instructions, 3 tabs PO qd x 3 days, then 2 tabs PO qd x 3 days, then 1 tab PO qd x 3 days, # 18 tab(s), 0 Refill(s), [facility]: [facility], Lumbosacral strain Sacral back pain, 172, cm, 12/19/23 16:30:00 EDT, Height, kg, 12/19/23 16:30:00 EDT, Dosing Weight Start Date: 12/19/23 Status: Ordered rosuvastatin calcium 20 mg oral tablet (5 sources) HMG-CoA Reductase Inhibitor Start: 06-23-2023 End: 07-27-2024 rosuvastatin 20 mg oral tablet Dose : 20 mg = 1 tab(s), Oral, qDay, # 100 tab(s), 3 Refill(s), [facility]: [facility], Hypercholesterolemia , 175.3, cm, 06/01/23 10:05:00 EST, Height, kg, 06/20/23 8:27:00 EST, Dosing Weight Start Date: 06/23/23 Stop Date: 07/27/24 Status: Ordered Quantity: 100.0 Unit: tab(s) Repeat number: 4 Indication: Pure hypercholesterolemia , unspecified tamsulosin hydrochloride 0.4 mg oral capsule (2 sources) alpha-Adrenergic Sanya Start: 12-19-2023 tamsulosin 0.4 mg oral capsule Dose : 0.4 mg = 1 cap(s), Oral, qDay, 0 Refill(s) Start Date: 12/19/23 Status: Ordered Vitamin C 250 mg oral tablet (4 sources) Start: 09-28-2021 Vitamin C 250 mg oral tablet Dose : 250 mg = 1 tab(s), Oral, qDay, # 30 tab(s), 0 Refill(s) Start Date: 09/28/21 Status: Ordered Vitamin D3 (7 sources) Start: 09-28-2021 Vitamin D3 Dose : 400 unit(s) = 1 tab(s), Oral, Daily, 0 Refill(s) Start Date: 09/28/21 Status: Ordered Repeat number: 1 Start: 09-28-2021 Vitamin D3 Dos e : 400 unit(s) = 1 tab(s), Oral, Daily, 0 Refill(s) Start Date: 09/28/21 Status: Ordered Problems Problem Classification Problem Date Documented Date Episodic/Chronic Administrative/social admission (1 source) Counseling procedure with explicit context; Translations: [Other specified counseling] Episodic Calculus of urinary tract (7 sources) Urolith 08-25-2014 Episodic Cancer of prostate (7 sources) Adenocarcinoma of prostate; Translations: [Malignant neoplasm of prostate] 11-29-2022 Chronic Cancer of prostate (1 source) Personal history of malignant neoplasm of prostate; Translations: [Personal history of malignant neoplasm of prostate] Episodic Cataract (7 sources) Cataract 08-17-2015 Chronic Disorders of lipid metabolism (6 sources) Hypercholesterolemia; Translations: [Pure hypercholesterolemia] 11-29-2022 Chronic Diverticulosis and diverticulitis (6 sources) Diverticulitis 08-25-2014 Chronic Essential hypertension (7 sources) Essential hypertension 09-28-2021 Chronic Genitourinary symptoms and ill-defined conditions (1 source) Post-void dribbling; Translations: [Post-void dribbling] Chronic Genitourinary symptoms and ill-defined conditions (9 sources) Retention of urine; Translations: [Urgent desire to urinate] 11-05-2014 Episodic Heart valve disorders (6 sources) Irregular heart beat 11-29-2022 Episodic Hyperplasia of prostate (1 source) Benign prostatic hypertrophy with outflow obstruction; Translations: [Benign prostatic hyperplasia with lower urinary tract symptoms] Chronic Leukemias (8 sources) Chronic lymphoid leukemia, disease; 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] 09-28-2021 Chronic Maintenance chemotherapy; radiotherapy (1 source) Radiotherapy procedure with explicit context; Translations: [Encounter for antineoplastic radiation therapy] Chronic Neoplasms of unspecified nature or uncertain behavior (2 sources) Neoplasm of uncertain behavior of skin; Translations: [Neoplasm of uncertain behavior of skin] Onset: 01-16-2024 Episodic Osteoarthritis (13 sources) Arthritis; Translations: [Osteoarthritis of left knee joint] 08-25-2014 Chronic Other aftercare (1 source) Follow-up status; Translations: [Encounter for follow-up examination after completed treatment for malignant neoplasm] Episodic Other aftercare (2 sources) Long-term current use of drug therapy; Translations: [rodent exterminator (current) use of other agents affecting estrogen receptors and estrogen levels] Episodic Other lower respiratory disease (7 sources) Snoring 08-26-2014 Episodic Other male genital disorders (1 source) Secondary erectile dysfunction; 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] Chronic Other male genital disorders (7 sources) H/O: male genital disorder; Translations: [Personal history of other diseases of male genital organs] 11-29-2022 Episodic Other nutritional; endocrine; and metabolic disorders (7 sources) Obesity 08-25-2015 Chronic Other skin disorders (1 source) Eruption 08-17-2015 Episodic Comment on above: POSSIBLE FROM LEUKEM [place] Residual codes; unclassified (6 sources) Edema of lower extremity 04-18-2023 Episodic Residual codes; unclassified (1 source) Pelvic organ finding; Translations: [Acquired absence of other genital organ(s)] Episodic Residual codes; unclassified (1 source) H/O: chemotherapy; Translations: [Personal history of antineoplastic chemotherapy] Episodic Residual codes; unclassified (1 source) Family history of malignant neoplasm of ovary; Translations: [Family history of malignant neoplasm of ovary] Episodic Residual codes; unclassified (1 source) H/O: radiation exposure; Translations: [Personal history of irradiation] Episodic Retinal detachments; defects; vascular occlusion; and retinopathy (7 sources) Retinal detachment 08-25-2014 Episodic Unclassified (6 sources) History of antineoplastic chemotherapy 11-29-2022 Comment on above: 2019 Leukemia /Dr. Terrie chang Unclassified (6 sources) Patient encounter status 01-10-2023 Results Test Name Value Interpretation Reference Range Facility MR/PAT.Lyudmila 01-05-2025 MR/PAT.PAT [facility] Medical Records Department [address] [place] [address] PAT - Anesthesia 01/05/25 1409 MR#: [id number] Acct: [id number] Name: BAY DELGADO Rep #: [id number] : 1945 79 From: Garth Pino MD PCP: Dr. 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 When Was Last Pacemaker Check QUESTION #4 FULL TEXT: You/Your Family Experience fever (hyperthermia) with Anesthesia Last Oral Intake Last Oral intake: Last Oral Intake NPO since Meds taken in AM with sips of water? 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 - product promoter sales person: PONV - product promoter sales person Female No 12/26/24 13:03 HX of Motion Sickness No 12/26/24 13:03 HX of N/V After Surgery No 12/26/24 13:03 Non-Smoker Yes 12/26/24 13:03 Duration of Surgery greater Yes 12/26/24 13:03 than 60 minutes Number of Risk Factors 2 12/26/24 13:03 PONV Score Moderate Risk 12/26/24 13:03 Height Weight Height Weight: Anesthesia: Height Weight Height 5 ft 9 in 11/22/22 06:49 Respiratory Assessment Respiratory Assessment - product promoter sales person: Respiratory Tract Infection Hx - product promoter sales person Hx Respiratory Tract Infection No 12/26/24 13:03 STOP Sleep Apnea STOP Sleep Apnea - product promoter sales person: STOP Sleep Apnea - product promoter sales person Hx Hypertension Yes: CONTROLLED WITH MED 12/26/24 13:03 Hx Sleep Apnea No 12/26/24 13:03 CPAP No 12/26/24 13:03 BIPAP Do you snore loudly (louder No 12/26/24 13:03 than talking or can be heard Do you often feel tired/ Yes 12/26/24 13:03 fatigued/ sleepy during daytime? Has anyone observed you stop No 12/26/24 13:03 breathing during sleep? STOP Results Positive 12/26/24 13:03 QUESTION #5 FULL TEXT : Do you snore loudly (louder than talking or can be heard through closed doors)? Tobacco Use History Tobacco Use History - product promoter sales person: Tobacco Use History - product promoter sales person Tobacco Use Smoking Status Never smoker 12/26/24 13:03 Hx Tobacco Use No 12/26/24 13:03 Years Smoking Packs Smoked per Day Smoking Cessation Date was within the last 15 years Hx Smoking Cessation Date Hx Smoking Cessation Counseling Hematologic Medial History Hematologic Hx - product promoter sales person: Hematologic Medical Hx - time study observer Hx of Blood Transfusion No 12/26/24 13:03 Hx of Transfusion in last 3 No 12/26/24 13:03 Months Date of Last Transfusion (if within last 3 months) Ever experience any problems No 12/26/24 13:03 with transfusion(s)? Specify any problems Hx of Preganancy in last 3 N/A 12/26/24 13:03 Months Nurse Filling Out Transfusion DSCHRIBER 12/26/24 13:03 Questions: Date: 12/26/24 12/26/24 13:03 Time: 13:04 12/26/24 13:03 Patient unable to answer at this time (ie. confused, unrespo /Reproduction History /Reproductive History - product promoter sales person: /Reproductive Hx- product promoter sales person Hx Now No 12/26/24 13:03 Gestational Age (in weeks): EDC: Hx Hx Para Hx Section SAB No 12/26/24 13:03 [facility] Medical History (Updated 12/26/24 @ 13:13 by Margaux Davila) Bladder disease Shortness of breath on exertion Hypertension Wears glasses Syncope Loss of hearing Alcohol use Cancer Arthritis Prostate disease Back pain History of diverticulitis Non-smoker History of pain when walking History of edema History of stress test History of irregular heartbeat Home Medications ???Medication ???Instructions ???Recorded ???Last Taken ???Type diltiazem HCl 240 mg 240 mg PO DAILY BP 11/14/22 History capsule,extended release 24 hr lisinopril 20 mg tablet 40 mg PO QHS BP 11/14/22 11/22/22 History atorvastatin 20 mg tablet (Lipitor) 20 mg PO QHS CHOLESTEROL Unknown History multivitamin (Daily Multi-Vitamin 1 tab PO DAILY SUPPLEMENT 5 Unknown History tablet) Allergy/AdvReac Type Severity Reaction Status Date / Time No Known Allergies Al (more content not included)... Normal [facility] CT ABD/PELVIS W/ + W/O CONTR [place] 12-19-2024 CT ABD/PELVIS W/ + W/O CONTRAST ORIGINAL EXAMINATION: CT OF THE ABDOMEN AND PELVIS WITH AND WITHOUT CONTRAST 12/18/2024 1:37 pm TECHNIQUE: CT of the abdomen and pelvis was performed with and without the administration of intravenous contrast. Multiplanar reformatted images are provided for review. Automated exposure control, iterative reconstruction, and/or weight based adjustment of the mA/kV was utilized to reduce the radiation dose to as low as reasonably achievable. COMPARISON: None. HISTORY: ORDERING SYSTEM PROVIDED HISTORY: Reason for Exam: Gross hematuria HEMATURIA MILD GEN ABD PAIN HX PROSTATE, LEUKEMIA CA HX PROSTATE SURGERY FINDINGS: Bibasilar atelectasis is noted. No acute osseous abnormalities are seen. Moderate degenerative changes are noted within the spine. There is grade 1 anterolisthesis of L4 on L5 and L5 on S1. There is hepatic steatosis. The spleen, adrenal glands, pancreas, and gallbladder appear normal. The bilateral kidneys demonstrate symmetric excretion. No nephrolithiasis or evidence of hydronephrosis is seen bilaterally. The aorta is normal in caliber with minimal atherosclerosis. No acute abnormalities of the GI tract are seen. There is mild scattered diverticulosis without evidence of diverticulitis. There is no evidence of acute appendicitis. No intra-abdominal or pelvic lymphadenopathy, free fluid, free air is seen. The bladder appears grossly normal. No additional contributory abnormalities. IMPRESSION: No acute intra-abdominal abnormality or cause for patient's symptoms seen. No urinary tract calculi or hydronephrosis. Mild scattered diverticulosis without evidence of diverticulitis. Hepatic steatosis. I have personally reviewed the images of this examination and agree with the resident's findings and interpretation. Interpreted by: Roscoe Bradford Preliminary Report By: Kait Ortega Electronically signed By Roscoe Bradford Dictated Date: 12/19/2024 1:18:40 PM Prelim Date: 12/19/2024 4:54:58 PM Sign Date: 12/19/2024 4:54:58 PM Ordering Provider: NEIL Duke ALLYN MASSILLON .Auto Diffon 11-29-2024 Basophil, Absolute 0.1 10 3/mcL Normal 0.0-0.3 JOSSUE MAN MASSILLON Comment on above: Performed By: #### C BC, ADIFF, ANEU, CMP, LIPID, GFR #### [facility] [address] [place] [address] #### PSA #### [address] [address] Basophils/100 WBC (Bld) 0.7 % Normal 0.0-2.5 ALLYN MASSILLON Comment on above: Performed By: #### C BC, ADIFF, ANEU, CMP, LIPID, GFR #### [facility] [address] [place] [address] #### PSA #### [address] [address] Eosinophil, Absolute 0.2 10 3/mcL Normal 0.0-0.7 AU LTMAN MASSILLON Comment on above: Performed By: #### C BC, ADIFF, ANEU, CMP, LIPID, GFR #### [facility] [address] [place] [address] #### PSA #### [address] [address] Eosinophils/100 WBC (Bld) 2.4 % Normal 0.0-6.0 ALLYN MASSILLON Comment on above: Performed By: #### C BC, ADIFF, ANEU, CMP, LIPID, GFR #### [facility] [address] [place] [address] #### PSA #### [address] [address] Lymphocyte, Absolute 2.2 10 3/mcL Normal 0.9-4.3 AU LTMAN MASSILLON Comment on above: Performed By: #### C BC, ADIFF, ANEU, CMP, LIPID, GFR #### [facility] [address] [place] [address] #### PSA #### [address] [address] Lymphocytes/100 WBC (Bld) 24.2 % Normal 20.0-40.0 ALLYN MASSILLON Comment on above: Performed By: #### C BC, ADIFF, ANEU, CMP, LIPID, GFR #### [facility] [address] [place] [address] #### PSA #### [place] [id number] Monocyte, Absolute 0.9 10 3/mcL Normal 0.1-1.4 JOSSUE MAN MASSILLON Comment on above: Performed By: #### C BC, ADIFF, ANEU, CMP, LIPID, GFR #### [facility] [address] [place] [address] #### PSA #### [address] [address] Monocytes/100 WBC (Bld) 9.8 % Normal 2.0-13.0 ALLYN MASSILLON Comment on above: Performed By: #### C BC, ADIFF, ANEU, CMP, LIPID, GFR #### [facility] [address] [place] [address] #### PSA #### [address] [address] Neutrophils/100 WBC (Bld) 62.9 % Normal 50.0-75.0 ALLYN MASSILLON Comment on above: Performed By: #### C BC, ADIFF, ANEU, CMP, LIPID, GFR #### [facility] [address] [place], [place] [address] #### PSA #### [address] [address] .GFRon 11-29-2024 Estimated Glomerular Filtration Rate 95 ml/min/1.73sqm Normal [facility] Comment on above: Result Comment: Stages of Chronic Kidney Disease (CKD) Stage Description eGFR(ml/min/1.73 sq.m.) CKD 1 Normal kidney function or >=90 normal kindney function with possible kidney damage (ex. Proteinuria) CKD 2 Kidney damage with mild loss 60-89 of kidney function CKD 3a Mild to moderate loss of kidney 45-59 function CKD 3b Moderate to severe loss of 30-44 of kindey function CKD 4 Severe loss of kidney function 15-29 CKD 5 Kidney failure <15 Note: (go live 2024) the eGFR calculation was updated to the 2020 CKD-EPI creatinine equation without a race factor to calculate the eGFR results. Performed By: #### C BC, ADIFF, ANEU, CMP, LIPID, GFR #### [facility] [address] [place] [phone] #### PSA #### [place] [address] .NEUABSon 11-29-2024 Neutrophil, Absolute 5.6 10 3/mcL Normal 2.3-8.1 [facility] Comment on above: Performed By: #### C BC, ADIFF, ANEU, CMP, LIPID, GFR #### [facility] [address] [place] [phone] #### PSA #### [place] [address] CBCon 11-29-2024 Erythrocyte distribution width (RBC) [Ratio] 15.8 % High 11.5-15.5 [facility] Comment on above: Performed By: #### C BC, ADIFF, ANEU, CMP, LIPID, GFR #### [facility] [address] [place] [phone] #### PSA #### [place] [address] Hematocrit (Bld) [Volume fraction] 51.2 % Normal 40.0-52.0 ALLYN MASSILLON Comment on above: Performed By: #### C BC, ADIFF, ANEU, CMP, LIPID, GFR #### [facility] [address] [place] [address] #### PSA #### [place] [address] Hgb 16.9 G/dL Normal 13.0-17.5 ALLYN MASSILLON Comment on above: Performed By: #### C BC, ADIFF, ANEU, CMP, LIPID, GFR #### [facility] [address] [place] [address] #### PSA #### [place] [address] MCH (RBC) [Entitic mass] 32.0 pg Normal 27.0-33.0 ALLYN MASSILLON Comment on above: Performed By: #### C BC, ADIFF, ANEU, CMP, LIPID, GFR #### [facility] [address] [place] [address] #### PSA #### [place] [address] MCHC 33.0 G/dL Normal 32.0-36.0 ALL[facility] MASSILLON Comment on above: Performed By: #### C BC, ADIFF, ANEU, CMP, LIPID, GFR #### [facility] [address] [place] [address] #### PSA #### [place] [address] MCV (RBC) [Entitic vol] 97.1 fL Normal 81.0-100.0 ALLYN MASSILLON Comment on above: Performed By: #### C BC, ADIFF, ANEU, CMP, LIPID, GFR #### [facility] [address] [place] [address] #### PSA #### [place] [address] Platelet 208 10 3/mcL Normal 150-450 ALLYN MASSILLON Comment on above: Performed By: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 40-49 = 99 mL/min/1.73 sq.m. Ages 50-59 = 93 mL/min/1.73 sq.m. Ages 60-69 = 85 mL/min/1.73 sq.m. Ages 70+ = 75 mL/min/1.73 sq.m. Chronic Kidney Disease: Less than 60 mL/min/1.73 square meters End Stage Renal Disease: Less than 15 mL/min/1.73 square meters Performed By: #### G FR, CBC, LIPID, ANEU, CMP, ADIFF #### [address] [address] GFR 104 ml/min/1.73sqm Normal [facility] ([place]) Comment on above: Result Comment: GFR Population mean for , Non- Americans Ages 20-29 = 116 mL/min/1.73 sq.m. Ages 30-39 = 107 mL/min/1.73 sq.m. Ages 40-49 = 99 mL/min/1.73 sq.m. Ages 50-59 = 93 mL/min/1.73 sq.m. Ages 60-69 = 85 mL/min/1.73 sq.m. Ages 70+ = 75 mL/min/1.73 sq.m. Chronic Kidney Disease: Less than 60 mL/min/1.73 square meters End Stage Renal Disease: Less than 15 mL/min/1.73 square meters Performed By: #### G FR, CBC, LIPID, ANEU, CMP, ADIFF #### [address] [address] .NEUABSon 04-20-2023 Neutrophil, Absolute 5.6 10 3/mcL Normal 2.9-6.2 [facility] [place] Comment on above: Performed By: #### G FR, CBC, LIPID, ANEU, CMP, ADIFF #### [address] [address] CBCon 04-20-2023 Erythrocyte distribution width (RBC) [Ratio] 14.3 % Normal 11.5-14.5 [facility] ([place] Comment on above: Performed By: #### G FR, CBC, LIPID, ANEU, CMP, ADIFF #### [address] [address] Hematocrit (Bld) [Volume fraction] 48.4 % Normal 42.0-52.0 [facility] ([place] Comment on above: Performed By: #### G FR, CBC, LIPID, ANEU, CMP, ADIFF #### [place] [address] Hgb 16.6 G/dL Normal 14.0-18.0 [facility] ([place] Comment on above: Performed By: #### G FR, CBC, LIPID, ANEU, CMP, ADIFF #### [address] [address] MCH (RBC) [Entitic mass] 32.1 pg High 27.0-31.2 [facility] ([place] Comment on above: Performed By: #### G FR, CBC, LIPID, ANEU, CMP, ADIFF #### [place] [address] MCHC 34.3 G/dL Normal 31.8-35.4 [facility] ([place] Comment on above: Performed By: #### G FR, CBC, LIPID, ANEU, CMP, ADIFF #### [address] [address] MCV (RBC) [Entitic vol] 93.8 fL Normal 80.0-94.0 [facility] ([place] Comment on above: Performed By: #### G FR, CBC, LIPID, ANEU, CMP, ADIFF #### [address] [address] Platelet 238 10 3/mcL Normal 130-400 [facility] ([place]) Comment on above: Performed By: #### G FR, CBC, LIPID, ANEU, CMP, ADIFF #### [address] [address] Platelet mean volume (Bld) [Entitic vol] 8.5 fL Normal 7.4-10.4 [facility] ([place] Comment on above: Performed By: #### G FR, CBC, LIPID, ANEU, CMP, ADIFF #### [address] [address] RBC 5.17 10 6/mcL Normal 4.04-6.13 [facility] ([place] Comment on above: Performed By: #### G FR, CBC, LIPID, ANEU, CMP, ADIFF #### [address] [address] WBC 8.8 10 3/mcL Normal 4.6-10.8 [facility] ([place] Comment on above: Performed By: #### G FR, CBC, LIPID, ANEU, CMP, ADIFF #### [address] [address] CMPon 04-20-2023 Albumin Level 3.8 G/dL Normal 3.4-4.8 [facility] ([place] Comment on above: Performed By: #### G FR, CBC, LIPID, ANEU, CMP, ADIFF #### [address] [address] Albumin/Globulin [Mass ratio] 1.1 {ratio} Normal 1.1-2.5 [facility] ([place] Comment on above: Performed By: #### G FR, CBC, LIPID, ANEU, CMP, ADIFF #### [address] [address] ALP [Catalytic activity/Vol] 134 U/L Normal 40-135 [facility] ([place] Comment on above: Performed By: #### G FR, CBC, LIPID, ANEU, CMP, ADIFF #### [address] [address] ALT [Catalytic activity/Vol] 26 U/L Normal 16-63 [facility] ([place] Comment on above: Performed By: #### G FR, CBC, LIPID, ANEU, CMP, ADIFF #### [address] [address] AST [Catalytic activity/Vol] 24 U/L Normal 10-40 [facility] ([place] Comment on above: Performed By: #### G FR, CBC, LIPID, ANEU, CMP, ADIFF #### [address] [address] Bili Total 0.2 mg/dL Normal 0.2-1.0 [facility] ([place]) Comment on above: Result Comment: Use of this assay is not recommended for patients undergoing treatment with eltrombopag due to the potential for falsely elevated results. Performed By: #### G FR, CBC, LIPID, ANEU, CMP, ADIFF #### [address] [address] BUN/Creatinine Ratio 20 ratio Normal 7-27 [facility] ([place]) Comment on above: Performed By: #### G FR, CBC, LIPID, ANEU, CMP, ADIFF #### [address] [address] Calcium [Mass/Vol] 9.0 mg/dL Normal 8.4-10.2 [facility] ([place]) Comment on above: Performed By: #### G FR, CBC, LIPID, ANEU, CMP, ADIFF #### [address] [address] Chloride [Moles/Vol] 101 mmol/L Normal 98-107 [facility] ([place] Comment on above: Performed By: #### G FR, CBC, LIPID, ANEU, CMP, ADIFF #### [address] [address] CO2 [Moles/Vol] 30 mmol/L Normal 23-31 [facility] ([place]) Comment on above: Performed By: #### G FR, CBC, LIPID, ANEU, CMP, ADIFF #### [address] [address] Creatinine [Mass/Vol] 0.86 mg/dL Normal 0.70-1.30 [facility] ([place]) Comment on above: Performed By: #### G FR, CBC, LIPID, ANEU, CMP, ADIFF #### [address] [address] Electrolyte Balance 9.0 mEq/L Normal 4.0-15.0 [facility] ([place]) Comment on above: Performed By: #### G FR, CBC, LIPID, ANEU, CMP, ADIFF #### [address] [address] Globulin 3.4 G/dL Normal [facility] ([place] Comment on above: Performed By: #### G FR, CBC, LIPID, ANEU, CMP, ADIFF #### [address] [address] Glucose [Mass/Vol] 110 mg/dL Normal 83-110 [facility] ([place] Comment on above: Performed By: #### G FR, CBC, LIPID, ANEU, CMP, ADIFF #### [address] [address] Potassium [Moles/Vol] 4.1 mmol/L Normal 3.5-5.1 [facility] ([place]) Comment on above: Performed By: #### G FR, CBC, LIPID, ANEU, CMP, ADIFF #### [address] [address] Sodium [Moles/Vol] 140 mmol/L Normal 136-145 [facility] ([place] Comment on above: Performed By: #### G FR, CBC, LIPID, ANEU, CMP, ADIFF #### [address] [address] Total Protein 7.2 G/dL Normal 6.4-8.2 [facility] ([place] Comment on above: Performed By: #### G FR, CBC, LIPID, ANEU, CMP, ADIFF #### [address] [address] Urea nitrogen [Mass/Vol] 17 mg/dL Normal 7-18 [facility] ([place] Comment on above: Performed By: #### G FR, CBC, LIPID, ANEU, CMP, ADIFF #### [address] [address] LABORATORYOrdered By: SYSTEM SYSTEM on 04-20-2023 Natriuretic peptide.B prohormone N-Terminal [Mass/Vol] 452 pg/mL High 0 - 450 pg/mL AO ADM SS Comment on above: Interpretive Data: N T-proBNP results of less than 300 pg/mL effectively rules out acute congestive heart failure with 99% negative predictive value. TSH Qn 1.02 m[IU]/L Normal 0.36 - 3.74 mcIU/mL AO ADM SS Albumin BCP dye [Mass/Vol] 3.8 G/dL Normal 3.4 - 4.8 G/dL AO ADM SS Albumin/Globulin [Mass ratio] 1.1 {ratio} Normal 1.1 - 2.5 ratio AO ADM SS ALP [Catalytic activity/Vol] 134 U/L Normal 40 - 135 U/L AO ADM SS ALT With P-5'-P [Catalytic activity/Vol] 26 U/L Normal 16 - 63 U/L AO ADM SS AST With P-5'-P [Catalytic activity/Vol] 24 U/L Normal 10 - 40 U/L AO ADM SS Basophil, Absolute 0.1 103/mcL Normal 0.0 - 0.2 10^3/mcL AO Workflow SS Basophils/100 WBC (Bld) 0.8 % Normal 0.0 - 2.5 % AO Workflow SS Bilirubin [Mass/Vol] 0.2 mg/dL Normal 0.2 - 1 .0 mg/dL AO ADM SS Comment on above: Interpretive Data: U se of this assay is not recommended for patients undergoing treatment with eltrombopag due to the potential for falsely elevated results. Calcium [Mass/Vol] 9.0 mg/dL Normal 8.4 - 10. 2 mg/dL AO ADM SS Chloride [Moles/Vol] 101 mmol/L Normal 98 - 10 7 mmol/L AO ADM SS CO2 [Moles/Vol] 30 mmol/L Normal 23 - 31 mmol/L AO ADM SS Creatinine [Mass/Vol] 0.86 mg/dL Normal 0.70 - 1.30 mg/dL AO ADM SS Electrolyte Balance 9.0 mEq/L Normal 4.0 - 15 .0 mEq/L AO ADM SS Eosinophil, Absolute 0.3 103/mcL Normal 0.0 - 0 .4 10^3/mcL AO Workflow SS Eosinophils/100 WBC (Bld) 3.2 % Normal 0.0 - 7.0 % AO Workflow SS Erythrocyte distribution width (RBC) [Ratio] 14.3 % Normal 11.5 - 14.5 % AO Workflow SS GFR/1.73 sq M.predicted among blacks MDRD (S/P/Bld) [Vol rate/Area] 104 ml/min/1.73sqm Invalid Interpretation Code AO Chemistry S Comment on above: Interpretive Data: GFR Population mean for , Non- Americans Ages 20-29 = 116 mL/min/1.73 sq.m. Ages 30-39 = 107 mL/min/1.73 sq.m. Ages 40-49 = 99 mL/min/1.73 sq.m. Ages 50-59 = 93 mL/min/1.73 sq.m. Ages 60-69 = 85 mL/min/1.73 sq.m. Ages 70+ = 75 mL/min/1.73 sq.m. Chronic Kidney Disease: Less than 60 mL/min/1.73 square meters End Stage Renal Disease: Less than 15 mL/min/1.73 square meters GFR/1.73 sq M.predicted among non-blacks MDRD (S/P/Bld) [Vol rate/Area] 86 ml/min/1.73sqm Invalid Interpretation Code AO Chemistry S Comment on above: Interpretive Data: GFR Population mean for , Non- Americans Ages 20-29 = 116 mL/min/1.73 sq.m. Ages 30-39 = 107 mL/min/1.73 sq.m. Ages 40-49 = 99 mL/min/1.73 sq.m. Ages 50-59 = 93 mL/min/1.73 sq.m. Ages 60-69 = 85 mL/min/1.73 sq.m. Ages 70+ = 75 mL/min/1.73 sq.m. Chronic Kidney Disease: Less than 60 mL/min/1.73 square meters End Stage Renal Disease: Less than 15 mL/min/1.73 square meters Globulin 3.4 G/dL Invalid Interpretation Code AO ADM SS Glucose [Mass/Vol] 110 mg/dL Normal 83 - 110 mg/dL AO ADM SS Hematocrit (Bld) [Volume fraction] 48.4 % Normal 42.0 - 52.0 % AO Workflow SS Hemoglobin (Bld) [Mass/Vol] 16.6 G/dL Normal 14.0 - 18.0 G/dL AO Workflow SS Lymphocyte, Absolute 1.7 103/mcL Normal 0.8 - 3 .9 10^3/mcL AO Workflow SS Lymphocytes/100 WBC (Bld) 19.4 % Normal 10.0 - 50.0 % AO Workflow SS MCH (RBC) [Entitic mass] 32.1 pg High 27.0 - 31.2 pg AO Workflow SS MCHC 34.3 G/dL Normal 31.8 - 35.4 G/dL AO Workflow SS MCV (RBC) [Entitic vol] 93.8 fL Normal 80.0 - 94.0 fL AO Workflow SS Monocyte, Absolute 1.1 103/mcL High 0.2 - 1.0 10^3/mcL AO Workflow SS Monocytes/100 WBC (Bld) 12.6 % Normal 1.7 - 13.0 % AO Workflow SS Neutrophil, Absolute 5.6 103/mcL Normal 2.9 - 6 .2 10^3/mcL AO Workflow SS Neutrophils/100 WBC (Bld) 64.0 % Normal 37.0 - 80.0 % AO Workflow SS Platelet mean volume (Bld) [Entitic vol] 8.5 fL Normal 7.4 - 10.4 fL AO Workflow SS Platelets (Bld) [#/Vol] 238 103/mcL Normal 130 - 400 10^3/mcL AO Workflow SS Potassium [Moles/Vol] 4.1 mmol/L Normal 3.5 - 5.1 mmol/L AO ADM SS Protein [Mass/Vol] 7.2 G/dL Normal 6.4 - 8.2 G/dL AO ADM SS RBC (Bld) [#/Vol] 5.17 106/mcL Normal 4.04 - 6.1 3 10^6/mcL AO Workflow SS Sodium [Moles/Vol] 140 mmol/L Normal 136 - 145 mmol/L AO ADM SS Urea nitrogen [Mass/Vol] 17 mg/dL Normal 7 - 18 mg/dL AO ADM SS Urea nitrogen/Creatinine [Mass ratio] 20 ratio Normal 7 - 27 ratio AO ADM SS WBC (Bld) [#/Vol] 8.8 103/mcL Normal 4.6 - 10.8 10^3/mcL AO Workflow SS LABORATORYOrdered By: Nik Jimenez on 04-20-2023 Cholesterol [Mass/Vol] 264 mg/dL High 0 - 200 mg/dL AO ADM SS Comment on above: Interpretive Data: C holesterol Reference Interval: Less than 200 Desirable 200-239 Borderline high risk 240 and above High risk Cholesterol in HDL [Mass/Vol] 47 mg/dL Normal 40 - 60 mg/dL AO ADM SS Cholesterol in LDL [Mass/Vol] 199 mg/dL High 0 - 130 mg/dL AO ADM SS Triglyceride [Mass/Vol] 88 mg/dL Normal 0 - 150 mg/dL AO ADM SS Comment on above: Interpretive Data: T riglyceride Reference Interval: Less than 150 Normal 150-199 Borderline high risk 200-499 High risk 500 or higher Very high risk LIPIDon 04-20-2023 Cholesterol [Mass/Vol] 264 mg/dL High 0-200 [facility] ([place] Comment on above: Result Comment: Chol esterol Reference Interval: Less than 200 Desirable 200-239 Borderline high risk 240 and above High risk Performed By: #### G FR, CBC, LIPID, ANEU, CMP, ADIFF #### [address] [address] Cholesterol in HDL [Mass/Vol] 47 mg/dL Normal 40-60 [facility] ([place] Comment on above: Performed By: #### G FR, CBC, LIPID, ANEU, CMP, ADIFF #### [address] [address] Cholesterol in LDL [Mass/Vol] 199 mg/dL High 0-130 [facility] ([place]) Comment on above: Performed By: #### G FR, CBC, LIPID, ANEU, CMP, ADIFF #### [address] [address] Triglyceride [Mass/Vol] 88 mg/dL Normal 0-150 [facility] ([place] Comment on above: Result Comment: Trig lyceride Reference Interval: Less than 150 Normal 150-199 Borderline high risk 200-499 High risk 500 or higher Very high risk Performed By: #### G FR, CBC, LIPID, ANEU, CMP, ADIFF #### [address] [address] PBNPon 04-20-2023 Natriuretic peptide B (Bld) [Mass/Vol] 452 pg/mL High 0-450 [facility] ([place] Comment on above: Result Comment: NT-p roBNP results of less than 300 pg/mL effectively rules out acute congestive heart failure with 99% negative predictive value. Performed By: #### G FR, CBC, LIPID, ANEU, CMP, ADIFF #### [facility] [address] [place], [place] [address] TSHon 04-20-2023 TSH Qn 1.02 m[IU]/L Normal 0.36-3.74 [facility] ([place]) Comment on above: Performed By: #### T SH #### [place] [id number] [place], [place] [address] Basophil percentageOrdered B y: Dr. Quick on 08-28-2022 Creatinine [Mass/Vol] 1.2 mg/dL 0.70-1.30 [facility] No Panel InformationOrdered By: Dr. Quick on 08-28-2022 Bedside Estimated GFR (eGFR) > 60.0000 mL/min >60 [facility] No Panel InformationOrdered By: Dr. Quick on 08-14-2022 Prostate Specific Antigen Total 16.40 ng/mL 0.0-4.0 [facility] Comment on above: This test was perfor med using the TPSA assay method for [employer] chemistry system. Values obtained with differentassay methods cannot be used interchangably.When changing PSA assays in the course of monitoring apatient, additional sequential testing should be carriedout to confirm baseline values. LABORATORYOrdered By: Heidi Young on 07-05-2022 Basophil, Absolute 0.0 103/mcL Invalid Interpretation Code 0.0 - 0.2 10^3/mcL AO Workflow SS Basophils/100 WBC (Bld) 0.4 % Invalid Interpretation Code 0.0 - 2.5 % AO Workflow SS Eosinophil, Absolute 0.1 103/mcL Invalid Interpretation Code 0.0 - 0.4 10^3/mcL AO Workflow SS Eosinophils/100 WBC (Bld) 1.0 % Invalid Interpretation Code 0.0 - 7.0 % AO Workflow SS Erythrocyte distribution width (RBC) [Ratio] 13.9 % Invalid Interpretation Code 11.5 - 14.5 % AO Workflow SS Hematocrit (Bld) [Volume fraction] 51.4 % Invalid Interpretation Code 42.0 - 52.0 % AO Workflow SS Hemoglobin (Bld) [Mass/Vol] 17.4 G/dL Invalid Interpretation Code 14.0 - 18.0 G/dL AO Workflow SS Lymphocyte, Absolute 2.0 103/mcL Invalid Interpretation Code 0.8 - 3.9 10^3/mcL AO Workflow SS Lymphocytes/100 WBC (Bld) 25.5 % Invalid Interpretation Code 10.0 - 50.0 % AO Workflow SS MCH (RBC) [Entitic mass] 31.6 pg Invalid Interpretation Code 27.0 - 31.2 pg AO Workflow SS MCHC 33.9 G/dL Invalid Interpretation Code 31.8 - 35.4 G/dL AO Workflow SS MCV (RBC) [Entitic vol] 93.2 fL Invalid Interpretation Code 80.0 - 94.0 fL AO Workflow SS Monocyte, Absolute 0.8 103/mcL Invalid Interpretation Code 0.2 - 1.0 10^3/mcL AO Workflow SS Monocytes/100 WBC (Bld) 10.3 % Invalid Interpretation Code 1.7 - 13.0 % AO Workflow SS Neutrophil, Absolute 4.9 103/mcL Invalid Interpretation Code 2.9 - 6.2 10^3/mcL AO Workflow SS Neutrophils/100 WBC (Bld) 62.8 % Invalid Interpretation Code 37.0 - 80.0 % AO Workflow SS Platelet mean volume (Bld) [Entitic vol] 8.1 fL Invalid Interpretation Code 7.4 - 10.4 fL AO Workflow SS Platelets (Bld) [#/Vol] 244 103/mcL Invalid Interpretation Code 130 - 400 10^3/mcL AO Workflow SS RBC (Bld) [#/Vol] 5.52 106/mcL Invalid Interpretation Code 4.04 - 6.13 10^6/mcL AO Workflow SS WBC (Bld) [#/Vol] 7.9 103/mcL Invalid Interpretation Code 4.6 - 10.8 10^3/mcL AO Workflow SS Basophil percentageon 2021 Chloride [Moles/Vol] 108 mmol/L 98-[address] [facility] Work Phone: Glucose [Mass/Vol] 112 mg/dL 74-106 [facility] Work Phone: Comment on above: Fasting Glucose resu lt from 100 to 125 mg/dL suggests IMPAIRED HOMEOSTASIS per A.D.A. criteria. Potassium [Moles/Vol] 3.8 mmol/L 3.5-5.1 [facility] Work Phone: Sodium [Moles/Vol] 139 mmol/L 136-145 [facility] Work Phone: WBC (Bld) [#/Vol] 7.6 10*3/uL 4.4-11.0 [facility] Work Phone: Blood erythrocytes count (nu mber/volume)on 09-19-2021 RBC (Bld) [#/Vol] 5.29 10*6/uL 4.6-6.2 [facility] Work Phone: Blood hemoglobin measurement (mass/volume)on 09-19-2021 Hemoglobin (Bld) [Mass/Vol] 16.9 g/dL 13.0-16.5 [facility] Work Phone: Blood platelet mean volumeon 09-19-2021 Platelet mean volume (Bld) [Entitic vol] 9.8 fL 6.2-12.0 [facility] Work Phone: Determination of erythrocyte mean corpuscular volume (MCV)on 09-19-2021 MCV (RBC) [Entitic vol] 94.9 fL 80-94 [facility] Work Phone: Hematocrit Auto (Bld) [Volum e fraction]on 09-19-2021 Hematocrit (Bld) [Volume fraction] 50.2 % 40-54 [facility] Work Phone: Laboratory - Chemistry and C hemistry - challengeon 09-19-2021 CO2 [Moles/Vol] 25.0 mmol/L 21.0-32.0 [facility] Work Phone: Urea nitrogen/Creatinine [Mass ratio] 28.2 mg/mg 10-20 [facility] Work Phone: Laboratory - Hematology and Cell countson 09-19-2021 Erythrocyte distribution width (RBC) [Entitic vol] 51.9 fL 35.1-43.9 [facility] Work Phone: Erythrocyte distribution width (RBC) [Ratio] 14.7 % 11.6-14.6 [facility] Work Phone: MCH (RBC) [Entitic mass] 31.9 pg 27.0-32.0 [facility] Work Phone: MCHC Auto (RBC) [Mass/Vol]on 09-19-2021 MCHC (RBC) [Mass/Vol] 33.7 g/dL 32-36 [facility] Work Phone: No Panel Informationon 09-19 Estimated GFR (MDRD) Amer 118 mL/min >60 [facility] Work Phone: Comment on above: GFR Calc Estimated GFR (MDRD) Non-Af Amer 97 mL/min >60 [facility] Work Phone: Comment on above: Non- GFR Calc Platelets bldon 09-19-2021 Platelets (Bld) [#/Vol] 229 10*3/uL 150-450 [facility] Work Phone: Serum or plasma calcium anish urement (mass/volume)on 09-19-2021 Calcium [Mass/Vol] 8.8 mg/dL 8.5-10.1 [facility] Work Phone: Serum or plasma creatinine m easurement (mass/volume)on 09-19-2021 Creatinine [Mass/Vol] 0.82 mg/dL 0.70-1.30 [facility] Work Phone: Comment on above: The validity of the calculated GFR & GFRAA in patients over 70 years has not been determined. Clinical correlation is essential. Serum or plasma urea nitroge n measurement (mass/volume)on 09-19-2021 Urea nitrogen [Mass/Vol] 23 mg/dL 7-18 [facility] Work Phone: Thin prep Papanicolaou smear with manual screeningon 09-19-2021 Thin prep Papanicolaou smear with manual screening 6 5-15 [facility] Work Phone: Culture, urineon 09-08-2021 Bacteria identified Cx Nom (U) Presumptive E. coli [facility] Work Phone: No Panel Informationon 09-08 Prostate Specific Antigen Screen 6.66 ng/mL 0.00-4.00 [facility] Work Phone: Comment on above: This test was perfor med using the TPSA assay method for the[employer] chemistry system. Values obtained with differentassay methods cannot be used interchangably.When changing PSA assays in the course of monitoring apatient, additional sequential testing should be carriedout to confirm baseline values. Prostate Specific Antigen Total 6.66 ng/mL 0.0-4.0 [facility] Work Phone: Comment on above: This test was perfor med using the TPSA assay method for the[employer] ([employer] chemistry system. Values obtained with differentassay methods cannot be used interchangably.When changing PSA assays in the course of monitoring apatient, additional sequential testing should be carriedout to confirm baseline values. Basophil percentageon 2021 Creatinine [Mass/Vol] 0.9 mg/dL 0.70-1.30 [facility] Work Phone: No Panel Informationon 06-01 Bedside Estimated GFR (eGFR) > 60.0000 mL/min >60 [facility] Work Phone: Culture, urine Bacteria identified Cx Nom (U) Presumptive E. coli [facility] Work Phone: Vital Signs Date Time Vital Sign Value Performing Clinician Faci lityue 09-21-2021 11:25-0400 Body height 175.[address] Bimal Staton Work Phone: [facility] Work Phone: 09-21-2021 11:25-0400 Body mass index (BMI) [Ratio] 33.2 kg/m2 Dr. Bimal Staton Work Phone: [facility] Work Phone: 09-21-2021 11:25-0400 Body temperature 99.1 [degF] Dr. Bimal Staton Work Phone: [facility] Work Phone: 09-21-2021 11:25-0400 Body weight 102.[address] Bimal Staton Work Phone: [facility] Work Phone: 09-21-2021 11:25-0400 Diastolic blood pressure 101 mm[Hg] Dr. Bimal Staton Work Phone: [facility] Work Phone: 09-21-2021 11:25-0400 Heart rate 81 /min Dr. Bimal Staton Work Phone: [facility] Work Phone: 09-21-2021 11:25-0400 Respiratory rate 16 /min Dr. Bimal Staton Work Phone: [facility] Work Phone: 09-21-2021 11:25-0400 SaO2% (BldA) [Mass fraction] 98 % Dr. Bimal Staton Work Phone: [facility] Work Phone: 09-21-2021 11:25-0400 Systolic blood pressure 154 mm[Hg] Dr. Bimal Staton Work Phone: [facility] Work Phone: Encounters Encounter Date Encounter Type Care Provider Facility Start: 01-07-2025 ambulatory Neil Quick Facravinder lity:[facility] Start: 01-02-2025 End: 01-02-[address] NEIL QUICK MD Facility:A Start: 12-18-2024 End: 12-18-[address] NEIL QUICK MD Facility:A Start: 11-29-2024 End: 11-29-2024 ambulatory HERB WHITTEN [employer] Facility:A Start: 06-19-2024 End: 07-02-2024 ambulatory JESSICA HIDALGO [employer] Facility:A Start: 06-19-2024 End: 07-02-2024 Radiation Therapy JESSICA HIDALGO [employer] [facility] Start: 04-22-2024 ambulatory NONE PHYSICIAN Facility :A Start: 03-11-2024 ambulatory NONE PHYSICIAN Facility :A Start: 02-13-2024 End: 06-02-2024 ambulatory BIMAL EZKEIEL DO Facility:A Start: 01-16-2024 End: 01-20-2024 ambulatory BIMAL EZEKIEL DO Facility:[facility] Start: 01-16-2024 End: 01-20-2024 Outreach Lab BIMAL EZEKIEL DO [facility] Start: 12-21-2023 End: 12-21-2023 ambulatory BIMAL EZEKIEL DO Facility:A Start: 12-18-2023 End: 12-18-2023 ambulatory BIMAL EZEKIEL DO Facility:A Start: 12-12-2023 End: 12-27-2023 ambulatory BIMAL EZEKIEL DO Facility:A Start: 12-12-2023 End: 12-27-2023 Radiation Therapy JESSICA HIDALGO [employer] [facility] Start: 10-31-2023 End: 10-31-2023 ambulatory BIMAL EZEKIEL DO Facility:A Start: 07-24-2023 End: 07-24-2023 ambulatory BIMAL EZEKIEL DO Facility:A Start: 07-24-2023 End: 07-24-2023 Patient encounter procedure CHAR CAZARES [employer] [facility] Start: 06-18-2023 End: 06-18-2023 ambulatory BIMAL EZEKIEL DO Facility:A Start: 06-01-2023 ambulatory KOSTAS MORTON MD Facilit y:A Start: 05-30-2023 End: 05-30-2023 ambulatory BIMAL EZEKIEL DO Facility:A Start: 04-20-2023 End: 04-20-2023 ambulatory BIMAL EZEKIEL DO Facility:B Start: 04-20-2023 End: 04-20-2023 Patient encounter procedure BIMAL EZEKIEL DO [facility] Start: 11-27-2022 End: 06-27-2023 Follow-up encounter CRUZ HAYNES MD [facility] Start: 09-19-2022 End: 09-19-2022 ambulatory [facility] Work Phone: Start: 09-19-2022 End: 09-19-2022 Patient encounter procedure [facility]Laboratory, Specimen Start: 08-28-2022 End: 08-28-2022 ambulatory [facility] Work Phone: Start: 08-28-2022 End: 08-28-2022 Patient encounter procedure [facility]MRI - [facility] Start: 08-14-2022 End: 08-14-2022 ambulatory [facility] Work Phone: Start: 08-14-2022 End: 08-14-2022 Patient encounter procedure [facility] Start: 07-05-2022 End: 07-05-2022 Patient encounter procedure BIMAL STATON DO [facility] Start: 09-19-2021 End: 09-19-[address] Bimal Staton Work Phone: [facility]Pre-Admission Testing Start: 09-19-2021 Non-patient / Non-visit Dr. Mary Anne Staton Work Phone: [facility] Start: 09-08-2021 End: 09-08-2021 Patient encounter procedure [facility] Start: 06-01-2021 End: 06-01-2021 Patient encounter procedure [facility]-Cat Scan, [facility] Procedures Date Procedure Procedure Detail Performing Clinician Start: 08-28-2022 MRI of pelvis with contrast Start: 09-08-2021 Urine culture Start: 06-01-2021 Computed tomography of abdomen and pelvis with contrast Start: 07-09-2015 Transurethral prostatectomy BIMAL STATON DO Start: 04-30-2014 Structure of retina of both eyes (body structure) BIMAL STATON DO Colonoscopy BIMAL STATON DO Ophthalmic surgery (qualifier value) BIMAL STATON DO Tonsillectomy BIMAL STATON DO Urine culture Dr. Bimal rodriguez Work Phone: Immunizations Immunization Date Immunization Notes Care Provider [facility] 04-19-2021 SARS-CoV-2 mRNA (tozinameran) vaccine BIMAL STATON DO [facility] 07-22-2020 SARS-CoV-2 mRNA (tozinameran) vaccine BIMAL STATON DO [facility] Comment on above: Result Comment: 2022: [id number] Payers Date Payer Category Payer Self-pay [id number] 2022 Unknown [id number] 2016 Unknown [id number] 1945 Unknown [id number] 2.16.8 [id number] 1945 Unknown [id number] 2.16.8 40.1.110178.3.579.2.627 1945 Unknown [id number] 2.16.8 40.1.634603.3.579.2.627 1944 Unknown [id number] 2.16.8 40.1.617287.3.579.2.627 1944 Unknown [id number] 2.16.8 40.1.184892.3.579.2.627 1944 Unknown [id number] 2.16.8 40.1.272221.3.579.2.627 1944 Unknown [id number] 2.16.8 40.1.321795.3.579.2.627 1944 Unknown [id number] 2.16.8 40.1.043212.3.579.2.627 1944 Unknown [id number] 2.16.8 40.1.249861.3.579.2.627 1944 Unknown [id number] 2.16.8 40.1.604978.3.579.2.627 1944 Unknown [id number] 2.16.8 40.1.227996.3.579.2.627 1944 Unknown [id number] 2.16. 840.1.062448.3.579.2.627 1944 Unknown [id number] 2.16. 840.1.013140.3.579.2.627 1944 Unknown [id number] 2.16. 840.1.237340.3.579.2.627 1944 Unknown [id number] 2.16.8 40.1.899078.3.579.2.627 1944 Unknown [id number] 2.16.8 40.1.988122.3.579.2.627 1945 Unknown [id number] 2.16.8 40.1.053987.3.579.2.627 Unknown [id number] 2.16.8 40.1.187201.3.579.2.462 Social History Date Type Detail Facility [facility] Work Phone: Start: 1945 Sex Assigned At Male A [facility] Start: 09-15-2021 Tobacco smoking stat us [facility] Unknown if ever smoked [facility] Start: 09-28-2021 End: 06-20-2023 Tobacco smoking status Never smoked tobacco (finding) [facility] Sexual Orientation [facility] Start: 10-23-2018 Sex Male (finding) [facility] Goals Date Patient Goal Desired Activity /State Mental Status Date Assessment Result Facility 09-21-2021 Cognitive function Voice/Name [facility] Work Phone: Clinical Notes 12-14-2022 to 01-18-2024 LaboratoryLaboratoryLaboratoryLaboratoryLaboratoryLaboratory Note Date & Type Note Facility 01-18-2024 Note The microscopic examination is performed, except in the case of Gross Only. [facility] 01-18-2024 Note The microscopic examination is performed, except in the case of Gross Only. [facility] 01-17-2024 Note The microscopic examination is performed, except in the case of Gross Only. [facility] 01-17-2024 Note The microscopic examination is performed, except in the case of Gross Only. [facility] 01-17-2024 Note The microscopic examination is performed, except in the case of Gross Only. [facility] 01-17-2024 Note The microscopic examination is performed, except in the case of Gross Only. [facility] 01-17-2024 Note The microscopic examination is performed, except in the case of Gross Only. [facility] 07-24-2023 Note ORIGINAL NM MYOCARDIAL SPECT STRESS/REST CLINICAL STATEMENT: ventricular ectopy on holter monitor TECHNIQUE: Lexiscan dose: 0.4 mg Radiopharmaceutical (rest): Tc-99m Sestamibi Dose:8.4 mCi Radiopharmaceutical (stress): Tc-99m Sestamibi Dose:26.1 mCi SPECT acquisition and processing Reconstruction and reorientation of SPECT images into short axis, vertical and horizontal long axis planes Quantitative LVEF assessment COMPARISON:none REPORT: Image quality is good. Low dose CT scan for attenuation correction did not demonstrate significant coronary artery constipation. Without attenuation correction: Both rest and stress images show fixed perfusion defect in the inferior wall, which is completely resolved with attenuation correction images, likely sub-diaphragmatic attenuation artifact. Gated images demonstrate normal LEFT ventricular size and systolic function. End-diastolic volume is 57 mL. TID ratio is 0.79. LEFT ventricular ejection fraction is 64%. There is normal wall motion and wall thickening IMPRESSION: 1. No evidence for Lexiscan-induced myocardial ischemia or infarction. Subdiaphragmatic attenuation artifact noted. 2. LEFT ventricle is normal in size and LEFT ventricular ejection fraction is 64%. Interpreted By: Sanjiv Anna MD Preliminary Report By: Odalis Cage Electronically Signed By: Sanjiv Anna MD Dictated Date: 07/24/2023 11:46:57 AM Prelim Date: 07/24/2023 11:49:34 AM Sign Date: 07/24/2023 1:58:16 PM Ordering Provider:[facility] 07-24-2023 Note Date of Service Date: 07/24/2023 Procedure: Lexiscan (regadenoson) chemical stress test Patient underwent a pharmacologic stress test using regadenoson. Total regadenoson dose of 0.4 mg was given as per protocol. The patient had a baseline heart rate of 85 bpm, which peaked at 131 bpm. The patient had a baseline blood pressure of 181/95mmHg and it changed to 180/84mmHg after the regadenoson administration. The patient did experience shortness of breath, which all resolved at the end of the test. The patient's baseline EKG showed sinus rhythm with premature atrial and ventricular complexes. During the stress, there were no EKG changes suggestive of ischemia. IMPRESSION: EKG portion of the Lexiscan stress test is negative for inducible ischemia. The results of the nuclear portion of the Lexiscan stress test will be reported separately. The EKGs were also reviewed by the attending physician. See addendum to this note by the attending physician for additional comments. Digitally Signed by ODALIS CAGE MD on 07/24/2023 10:13 AM Digitally Signed by WILIAM GRAVES MD [facility] 02-26-2023 Note Radiation Oncology Completion of Therapy Note Date: 02/26/2023 Bay Delgado U#:[id number] : 1945 Referring Physician: DR NEIL QUICK Diagnosis: Unfavorable intermediate risk prostate cancer, clinical T2a, [place] 4+3=7 PSA 6.6 CD-10 Diagnosis: C61 - Malignant neoplasm of prostate, Diagnosed 11/29/2022 (Active) Stage IIC, T2a, N0, M0, P<10, G3 Dates of treatment: 01/08/2023 - 02/14/2023 Treatment details : [Prostate and proximal seminal vesicle treated with rapid arc IMRT with 10 MV photons and pretreatment cone beam CT scan. This treated in conjunction with neoadjuvant concurrent overall planned short-term androgen ablation] Course: C1 Prostate Treatment Site Ref. ID Energy Dose/Fx (cGy) #Fx Dose Correction (cGy) Total Dose (cGy) Start Date End Date Elapsed Days RA P pxSV P+pxSV 10X 250 28 / 28 0 7,000 01/08/2023 02/14/2023 37 Tolerance: [He tolerated therapy well] Response: [To be assessed to follow-up] Remarks: [Follow-up 1 month] Thank you for the opportunity to care for your patient. Digitally signed by: Cruz Haynes MD 02/26/2023 7:17:54 AM cc: DR NEIL QUICK MD Course: C1 Prostate Treatment Site: [facility] pxSV Ref. ID: P+pxSV Energy: 10X Dose/Fx (cGy): 250 #Fx: 28 / 28 Dose Correction (cGy): 0 Total Dose (cGy): 7,000 Start Date: 01/08/2023 End Date: 02/14/2023 Elapsed Days: 37 [facility] 02-13-2023 Note Patient Name: Bay Delgado Primary Physician: Cruz Haynes Referring Physician: DR NEIL QUICK MD : 1945 On Treatment Visit Note Date of Service: 02/13/2023 VITALS: Performed on 02/13/2023 8:04 AM Weight - 227 lbs-. IMPRESSION: Unfavorable intermediate risk prostate cancer, clinical T2a, [place] 4+3=7 PSA 6.6 ICD10 Dx: C61 - Malignant neoplasm of prostate, Diagnosed 11/29/2022 (Active) TREATMENT SUMMARY: Course ID Plan ID Rx Dose (cGy) Fraction Status C1 Prostate z EDU eb 7,000 Unapproved C1 Prostate RA PpxSV 7,000 Treatment Approved C1 Prostate z EDU cd 7,000 Unapproved TOXICITIES: The following toxicities were assessed as a 1: Constipation - Occasional or intermittent symptoms; occasional use of stool softeners, laxatives, dietary modification, or enema Urinary frequency - Present Urinary urgency - Present Dermatitis radiation - No toxicity Diarrhea - No toxicity Dry skin - No toxicity Dysuria - No toxicity Fatigue - No toxicity Hematuria - No toxicity Hemorrhoids - No toxicity Pain - No toxicity Proctitis - No toxicity Rectal hemorrhage - No toxicity Urinary incontinence - No toxicity PHYSICAL EXAM: [No reactions. ] REMARKS: treatments continued constipation taking Miralax having some rectal discomfort with BM's. [Mild nocturia, not significantly worse. Advised to trial OTC cranberry prn urinary s/s. ] Continue Treatment: ? Hold Treatment: ? Treatment Completed: ? Follow Up Needed: ? Weekly Chart Review Completed: ? Seen and examined and agree Electronically Signed By: Fawad Ross MD 02/13/2023 8:45:32 AM [facility] 02-06-2023 Note Patient Name: Bay Delgado Primary Physician: Cruz Haynes Referring Physician: DR NEIL QUICK MD : 1945 On Treatment Visit Note Date of Service: 02/06/2023 VITALS: Performed on 02/06/2023 7:49 AM Weight - 227 lbs-. IMPRESSION: Unfavorable intermediate risk prostate cancer, clinical T2a, [place] 4+3=7 PSA 6.6 ICD10 Dx: C61 - Malignant neoplasm of prostate, Diagnosed 11/29/2022 (Active) TREATMENT SUMMARY: Course ID Plan ID Rx Dose (cGy) Fraction Status C1 Prostate RA PpxSV 7,000 Treatment Approved TOXICITIES: The following toxicities were assessed as a 1: Constipation - Occasional or intermittent symptoms; occasional use of stool softeners, laxatives, dietary modification, or enema Urinary frequency - Present Urinary urgency - Present Dermatitis radiation - No toxicity Diarrhea - No toxicity Dry skin - No toxicity Dysuria - No toxicity Fatigue - No toxicity Hematuria - No toxicity Hemorrhoids - No toxicity Pain - No toxicity Proctitis - No toxicity Rectal hemorrhage - No toxicity Urinary incontinence - No toxicity PHYSICAL EXAM: [NAD] REMARKS: treatments discomfort with BMs also continued dizziness at times. [Doing well. Dizziness continues. Discussed previously and was told Flomax could be contributing. No other complaints or concerns at this time. ] Continue Treatment: ? Hold Treatment: ? Treatment Completed: ? Follow Up Needed: ? Weekly Chart Review Completed: ? I, Jessica Hidalgo CNP, am scribing for and in the presence of Dr. Olguin. Scribe: Jessica Hidalgo CNP 02/06/2023 8:08 AM The documentation recorded by the scribe accurately and completely reflects the services I, Alee Olguin MD, personally performed and the decisions made by me. Electronically Signed By: Alee Olguin MD 02/06/2023 2:33:41 PM [facility] 01-30-2023 Note Patient Name: Bay Delgado Primary Physician: Cruz Haynes Referring Physician: DR NEIL QUICK MD : 1945 On Treatment Visit Note Date of Service: 01/30/2023 VITALS: Performed on 01/30/2023 8:16 AM Weight - 226 lbs-. IMPRESSION: Unfavorable intermediate risk prostate cancer, clinical T2a, [place] 4+3=7 PSA 6.6 ICD10 Dx: C61 - Malignant neoplasm of prostate, Diagnosed 11/29/2022 (Active) TREATMENT SUMMARY: Course ID Plan ID Rx Dose (cGy) Fraction Status C1 Prostate z EDU eb 7, Unapproved C1 Prostate RA PpxSV 7, Treatment Approved C1 Prostate z EDU cd , Unapproved TOXICITIES: The following toxicities were assessed as a 1: Constipation - Occasional or intermittent symptoms; occasional use of stool softeners, laxatives, dietary modification, or enema Urinary frequency - Present Urinary urgency - Present Dermatitis radiation - No toxicity Diarrhea - No toxicity Dry skin - No toxicity Dysuria - No toxicity Fatigue - No toxicity Hematuria - No toxicity Hemorrhoids - No toxicity Pain - No toxicity Proctitis - No toxicity Rectal hemorrhage - No toxicity Urinary incontinence - No toxicity PHYSICAL EXAM: [no reaction ] REMARKS: having some constipation. Having some dizziness taking Flomax daily. [urination better w/ Flomax some orthostasis. ] Continue Treatment: ? Hold Treatment: ? Treatment Completed: ? Follow Up Needed: ? Weekly Chart Review Completed: ? Electronically Signed By: Cruz Haynes MD 01/30/2023 8:24:05 AM [facility] 12-14-2022 Note SPACE OAR PROCEDURE NOTE Prostate Volume Determined by Transrectal Prostate Scanning for I125/Pd103 Interstitial Implant Date of Service: 12/14/2022 Patient Name: Bay Delgado Unit #: [id number] Diagnosis: Unfavorable intermediate risk prostate cancer, clinical T2a, [place] 4+3=7 PSA 6.6 Indication: Space OAR was inserted into the prostate rectal plane to decrease rectal dose and toxicity Anesthesia: x Injectable Lidocaine with Epinephrine Topical Xylocaine Other Procedure Note: Using a 7.5 MHz transducer, rectal prostate scanning was initiated in the transverse mode. Prostate was aligned with the probe. The injection site was prepped and draped in normal sterile fashion with Betadine solution. The injection site was anesthetized with lidocaine with epinephrine with a skin wheal, mid injection, and near the prostate apex above the perirectal fat, a total of 12 cc were utilized. The space OAR needle was then directed under ultrasound visualization into the perirectal fat. This was confirmed with direct axial imagery. Then a total of 8 cc of injectable saline was used to hydrodissect the plane open from the base to the apex. Again this was confirmed with axial imagery along with sagittal imagery. Then the polymer was injected into the space with direct ultrasound visualization over 20 second count. After an additional 15 seconds of waiting the needle was removed. No bleeding was noted and the patient was discharged. The procedure was tolerated well. Comments: Space opened evenly and uniformly, injection went in without any difficulty or pain for the patient. Electronically signed by: Cruz Haynes MD 12/14/2022 9:24:28 AM [facility] Evaluation + Plan note Future Appointments Appointment Date:01/09/2023 09:00:00 AM Scheduled Provider:BIMAL STATON DO Location:[facility] Appointment Type:PC OV [facility] Evaluation + Plan note Future Appointments Appointment Date:06/20/2023 08:30:00 AM Scheduled Provider:JULIA QUINONES PA-C Location:[facility] Appointment Type:RO Follow Up 30 Appointment Date:10/17/2023 01:30:00 PM Scheduled Provider:BIMAL STATON DO Location:[facility] Appointment Type:PC OV Future Scheduled TestsProstate Specific Antigen 06/14/24Albumin/Creatinine Ratio, Random Urine 04/18/23 [facility] Evaluation + Plan note Future Appointments Appointment Date:07/16/2023 07:00:00 AM Scheduled Provider: Location:[facility] Appointment Type:Echo - Echocardiogram Adult Appointment Date:07/20/2023 02:15:00 PM Scheduled Provider: Location:[facility] Appointment Type:CV OV Appointment Date:10/17/2023 01:30:00 PM Scheduled Provider:BIMAL STATON DO Location:[facility] Appointment Type:PC OV Appointment Date:12/19/2023 08:45:00 AM Scheduled Provider:JESSICA HIDALGO Location:[facility] Appointment Type:RO Follow Up 30 Future Scheduled TestsProstate Specific Antigen 12/18/24Albumin/Creatinine Ratio, Random Urine 04/18/23 [facility] Evaluation + Plan note Future Appointments Appointment Date:10/17/2023 01:30:00 PM Scheduled Provider:BIMAL STATON DO Location:[facility] Appointment Type:PC OV Appointment Date:12/19/2023 08:45:00 AM Scheduled Provider:JESSICA HIDALGO Location:[facility] Appointment Type:RO Follow Up 30 Future Scheduled TestsProstate Specific Antigen 12/19/23Albumin/Creatinine Ratio, Random Urine 04/18/23 [facility] Evaluation + Plan note Future Appointments Appointment Date:01/16/2024 01:30:00 PM Scheduled Provider:BIMAL STATON DO Location:[facility] Appointment Type:PC Office Procedure Appointment Date:04/16/2024 01:30:00 PM Scheduled Provider:BIMAL STATON DO Location:[facility] Appointment Type:PC Wellness [facility] Enhanced Appointment Date:06/25/2024 10:30:00 AM Scheduled Provider:JESSICA HIDALGO APRN-JOAN Location:[facility] Appointment Type:RO Follow Up 15 Future Scheduled TestsProstate Specific Antigen 2//25Albumin/Creatinine Ratio, Random Urine 04/18/23 [facility] Evaluation + Plan note Future Appointments Appointment Date:04/16/2024 01:30:00 PM Scheduled Provider:BIMAL STATON DO Location:[facility] Appointment Type:PC Wellness [facility] Enhanced Appointment Date:06/25/2024 10:30:00 AM Scheduled Provider:JESSICA HIDALGO APRN-JOAN Location:[facility] Appointment Type:RO Follow Up 15 Future Scheduled TestsProstate Specific Antigen 2/21/25Albumin/Creatinine Ratio, Random Urine 04/18/23 [facility] Evaluation + Plan note Future Appointments Appointment Date:10/22/2024 01:30:00 PM Scheduled Provider:HERB WHITTEN APRN-JOAN Location:[facility] Appointment Type:PC OV Future Scheduled TestsProstate Specific Antigen 2/21/25Complete Blood Count 04/16/24Lipid Profile 04/16/24Albumin/Creatinine Ratio, Random Urine 04/16/24Complete Metabolic Panel 04/16/24 [facility] Evaluation note No assessment inform ation available [facility] Work Phone: Hospital course Narrative No data available for this section [facility] Hospital Discharge instructions No data available for this section [facility] Progress note No data available for this section [facility] Chief Complaint and Reason for Visit Chief Complaint GROSS HEMUTURIA Chief Complaint CYSTO, TURP, OLYMPUS CYSTO, TURP, OLYMPUS Chief Complaint ELEVATED PSA Advance Directives No Advanced Directives Records Found Advance Directive Response Recorded Date/ Time Name of Medical Power of Patient Partner DAUGHTER September 15, 2021 2:56pm Living Will Yes September 15, 2021 2 :56pm Power of Patient Partner Yes September 15, 2021 2:56pm Advance Directive Response Recorded Date/ Time Living Will Yes September 15, 2021 2 :56pm Power of Patient Partner Yes September 15, 2021 2:56pm Summary Purpose Family History No Family History Records Found Additional Source Comments Goals (unrecognized section and content) Goals may be documented in a n alternate section No data available for this sectionGoals may be documented in an alternate sectionGoals may be documented in an alternate sectionGoals may be documented in an alternate section No data available for this section No data available for this section No data available for this section No data available for this section No data available for this section No data available for this section Care Team (unrecognized sect ion and content) Care Team Personnel Name: BIMAL STATON DO Position: P4 Physician - Primary Care Member Role: Primary Care Physician Address: Address: [address] [place] [address] Care Team Related Persons Name: MOJGAN MUÑOZ Name: MOJGAN MUÑOZ Name: MOJGAN MUÑOZ Name: MOJGAN MUÑOZ Care Teams (unrecognized sec tion and content) Team Status: Active Member Role Status Dates Dr. Bimal Staton DO Family Provider Active Dr. Bimal Staton DO Primary Care Provider Active Team Status: Inactive Member Role Status Dates Dr. Bimal Staton DO Primary Care Provider Active Dr. Neil Quick MD Attending Provider, Referr ing Provider Active Team Status: Inactive Member Role Status Dates Dr. Bimal Staton DO Primary Care Provider Active Dr. Neil Quick MD Attending Provider Active (unrecognized sect ion and content) No Status Records FoundNo Status Records FoundNo Status Records FoundNo Status Records FoundNo Status Records Found INFORMATION SOURCE (unrecogn ized section and content) DATE CREATED AUTHOR 01/02/2024 [facility] ([place]) DATE CREATED AUTHOR AUTHOR'S ORGANIZ ATION 01/22/2024 [facility] DATE CREATED AUTHOR AUTHOR'S ORGANIZ ATION 07/21/2024 [facility] DATE CREATED AUTHOR AUTHOR'S ORGANIZ ATION 01/04/2025 [facility] DATE CREATED AUTHOR AUTHOR'S ORGANIZ ATION 01/06/2025 [facility] FOR RECORDS PERTAINING TO PATIENTS WHO ARE OR HAVE BEEN ENROLLED IN A CHEMICAL DEPENDENCY/SUBSTANCEABUSE PROGRAM, SOME INFORMATION MAY BE OMITTED. This clinical summary was aggregated from multiple sources. Caution should be exercised in using it in the provision of clinical care. This summary normalizes information from multiple sources, and as a consequence, information in this document may materially change the coding, format and clinical context of patient data. In addition, data may be omitted in some cases. CLINICAL DECISIONS SHOULD BE BASED ON THE PRIMARY CLINICAL RECORDS. [facility]. provides no warranty or guarantee of the accuracy or completeness of information in this document.
[2025-01-07] MEDS: Lactated Ringers 1,000 ML 15 ML IV (06:43)
--- NOTE | 2025-01-07 07:06 | PCM.PRE.AN2 ---
ASA Classification* ASA Classification ASA Classification: 2 and 3 Assessment & Plan Anesthesia* Anesthesia Assessment Anesthesia Assessment: Discussed sedation and/or anesthesia options, risks, benefits, and alternatives with patient/parents/legal guardian/POA. Questions invited. The patient/parents/legal guardian/POA seems to understand and agrees to proceed with anesthesia plan. Reviewed the physical assessment, medical history, allergy history and patient home medications list prior to surgery/procedure/anesthetic and documented any changes. Performed airway and anesthesia risk assessments. Anesthesia Type Anesthesia Type: General History Source History Obtained from:: Patient, Chart and Significant Other (Daughter) Anesthesia Focused Assessment* Temperature: 98.6 F Pulse Rate: 82 Blood Pressure: 155/85 Respiratory Rate: 18 Pulse Ox: 98 Oxygen Delivery Method: Room Air Airway Assessment Mouth opens: >3 cm Mallampati Score: II Teeth Condition: Intact Neck Range of motion (ROM): Full ROM Labs Anesthesia Preop lab: CBC WBC 9.2 K/mm3 (4.4-11.0) 11/16/22 07:49 11/16/22 RBC 5.52 M/mm3 (4.6-6.2) 11/16/22 07:49 11/16/22 Hgb 17.7 g/dL (13.0-16.5) H 11/16/22 07:49 11/16/22 Hct 53.1 % (40-54) 11/16/22 07:49 11/16/22 Plt Count 248 K/mm3 (150-450) 11/16/22 07:49 11/16/22 CHEMISTRY Potassium 3.8 mmol/L (3.5-5.1) 11/16/22 07:49 11/16/22 Sodium 142 mmol/L (136-145) 11/16/22 07:49 11/16/22 BUN 29 mg/dL (7-18) H 11/16/22 07:49 11/16/22 Creatinine 0.92 mg/dL (0.70-1.30) 11/16/22 07:49 11/16/22 Glucose 107 mg/dL (74-106) H 11/16/22 07:49 11/16/22 COAG Pre-Assessment Diagnosis/Proposed Procedure Planned Operative Procedure(s): CYSTOLITHOLAPAXY,TURP Anesthesia History 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 When Was Last Pacemaker Check QUESTION #4 FULL TEXT: You/Your Family Experience fever (hyperthermia) with Anesthesia Last Oral Intake Last Oral intake: Last Oral Intake NPO since 00:00 01/07/25 06:29 Meds taken in AM with sips of Yes 01/07/25 06:29 water? 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 - habilitation worker: PONV - habilitation worker Female No 12/26/24 13:03 HX of Motion Sickness No 12/26/24 13:03 HX of N/V After Surgery No 12/26/24 13:03 Non-Smoker Yes 12/26/24 13:03 Duration of Surgery greater Yes 12/26/24 13:03 than 60 minutes Number of Risk Factors 2 12/26/24 13:03 PONV Score Moderate Risk 12/26/24 13:03 Height & Weight Height & Weight: Anesthesia: Height & Weight Height 5 ft 9 in 01/07/25 06:29 Weight: 105 kg 01/07/25 06:29 Body Mass Index (BMI) 34.2 01/07/25 06:29 Respiratory Assessment Respiratory Assessment - habilitation worker: Respiratory Tract Infection Hx - habilitation worker Hx Respiratory Tract Infection No 12/26/24 13:03 STOP Sleep Apnea STOP Sleep Apnea - habilitation worker: STOP Sleep Apnea - habilitation worker Hx Hypertension Yes: CONTROLLED WITH MED 12/26/24 13:03 Hx Sleep Apnea No 12/26/24 13:03 CPAP No 12/26/24 13:03 BIPAP Do you snore loudly (louder No 12/26/24 13:03 than talking or can be heard Do you often feel tired/ Yes 12/26/24 13:03 fatigued/ sleepy during daytime? Has anyone observed you stop No 12/26/24 13:03 breathing during sleep? STOP Results Positive 12/26/24 13:03 QUESTION #5 FULL TEXT : Do you snore loudly (louder than talking or can be heard through closed doors)? 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 Specify any problems Hx of Preganancy in last 3 N/A 12/26/24 13:03 Months Nurse Filling Out Transfusion DSCHRIBER 12/26/24 13:03 & Questions: Date: 12/26/24 12/26/24 13:03 Time: 13:04 12/26/24 13:03 Patient unable to answer at this time (ie. confused, unrespo /Reproduction History /Reproductive History - habilitation worker: /Reproductive Hx- habilitation worker Hx Now No 12/26/24 13:03 Gestational Age (in weeks): EDC: Hx Hx Para Hx Section SAB No 12/26/24 13:03 Active Medications Active Medications: Current Medications Generic Name Dose Route Start Last Admin Trade Name Freq PRN Reason Stop Dose Admin Cefazolin Sodium 2 gm/ Sodium 110 mls @ 200 mls/hr 01/07/25 07:30 Chloride IV 01/07/25 08:02 INTRAOP ONE Lactated Ringer's 1,000 mls @ 15 mls/hr 01/07/25 06:30 01/07/25 06:43 IV 15 mls/hr .Q48H REJI Administration PFSH Medical History Bladder disease Shortness of breath on exertion Hypertension Wears glasses Syncope Loss of hearing Alcohol use Cancer Arthritis Prostate disease Back pain History of diverticulitis Non-smoker History of pain when walking History of edema History of stress test History of irregular heartbeat Home Medications ?Medication ?Instructions ?Recorded ?Last Taken ?Type diltiazem HCl 240 mg 240 mg PO DAILY BP 11/14/22 11/22/22 History capsule,extended release 24 hr lisinopril 20 mg tablet 40 mg PO QHS BP 11/14/22 11/22/22 History atorvastatin 20 mg tablet (Lipitor) 20 mg PO QHS CHOLESTEROL 12/26/24 Unknown History multivitamin (Daily Multi-Vitamin 1 tab PO DAILY SUPPLEMENT 12/26/24 Unknown History tablet) Allergy/AdvReac Type Severity Reaction Status Date / Time No Known Allergies Allergy Verified 12/26/24 12:59 Surgical History Hx of detached retina repair History of transurethral resection of prostate Hx of right cataract extraction Hx of left cataract extraction Hx of colonoscopy History of dental surgery Social History Smoking Status: Never smoker Review of Systems (Anesthesia) ROS Narrative System reviewed and no additional complaints, except as documented.
[2025-01-07] MEDS: Lactated Ringers 500 ML IV (07:21)
[2025-01-07] MEDS: Cefazolin 1 GM/5 ML Vial 2 GM IV (07:26)
[2025-01-07] MEDS: Lidocaine 1% (5 ml sdv) 5 ML Vial 6 ML IV (07:26)
--- NOTE | 2025-01-07 07:30 | PROS_PTH ---
PATIENT: CAMILA DELGADO LOC: MS3 U#:[id number] AGE/SX: 79/M ROOM: [facility] [place]01/07/[address]: Dr. Neil Hatch MD : 1945 BED: 1 DIS: 01/08/2025 SPEC #: [id number] RECD: 01/07/25 09:35 STATUS: KATHY ASHLYN #: [id number] MADDY: 01/07/25 07:[address]: Neil Hatch DEPT: SURGICAL PATHOLOGY RECD BY: Sergio Capellan ENTERED: 01/07/25 13:28 SP TYPE: TURP OTHR DR: HERB WHITTEN, SYLVESTER Tissues: A - Prostate, NOS Procedures: Immunohistochemical Stains Surgery Specimen Level IV IHC Stain ADDITIONAL HEADER OPERATION: Cysto, transurethral resection prostate PRE-OP DIAGNOSIS: Bladder stone TISSUE SUBMITTED: A- Prostate tissue MICROSCOPIC DIAGNOSIS A. Prostate, transurethral resection: - Benign prostate tissue. - PIN4 IHC is negative for evidence of malignancy (A1, A2). MICROSCOPIC DESCRIPTION Slides are reviewed. ?All matched controls reacted appropriately. These tests were developed and their performance characteristics determined by [facility]. They may not have been cleared or approved by the U.S. Food and Drug Administration. The FDA has determined that such clearance or approval is not necessary.? The above immunohistochemical?markers and/or special stains have been reviewed by the Pathologist. GROSS DESCRIPTION A. Received in formalin labeled with the patient's name and date of . Designated as prostate tissue is a 4.6 g, 4.3 x 3.1 x 0.7 cm aggregate of irregular, espinoza, rubbery and cauterized tissue fragments. Entirely submitted in 3 cassettes. CO 01/07/2025 CPT:95135,11066m4
[2025-01-07] MEDS: fentaNYL 100 MCG/2 ML Ampul IV (07:35)
--- NOTE | 2025-01-07 08:06 | DCINST_ITS ---
Discharge Instructions DC O2, CPAP, BIPAP needs Home O2 Discharge instructions: No Dressing / Incision Discharge Activity: Return to Normal Activity and May Not Drive (while taking narcotic pain medications.) Dressing / Incision Call your doctor if you observe: Fever of 101 or Higher Follow Up Care Please Follow Up With: Neil Hatch MD When: Call [phone] for an appointment Test Results: Test results from this visit will be discussed in further detail at your follow- up appointment, if applicable. Discharge Plan Admission Primary Reason for Your Visit: Transurethral section of the prostate Attending Provider: Neil Hatch Primary Care Provider: HERB WHITTEN Instructions Patient Instructions: TURP, TURP Home Recovery, TURP Hospital Recovery Print Language: Arabic Discharge Orders/Prescriptions Prescriptions: New cephalexin 500 mg capsule 500 mg PO TID Qty: 21 0RF Continued diltiazem HCl 240 mg capsule,extended release 24hr 240 mg PO DAILY Patient Comments: TAKE ONE CAPSULE BY MOUTH EVERY DAY lisinopril 20 mg tablet 40 mg PO QHS Patient Comments: TAKE ONE TABLET BY MOUTH EVERY DAY atorvastatin [Lipitor] 20 mg tablet 20 mg PO QHS multivitamin [Daily Multi-Vitamin] Tablet 1 tab PO DAILY Referrals / Follow Up: HERB WHITTEN, BLASTING ENTRY SPECIALIST-C [Primary Care Provider] - Disposition Disposition (needs filled in before D/C Order can be placed): Home, Self Care
--- NOTE | 2025-01-07 08:06 | OP.PCM_ITS ---
Operative Report (Standard) Operative Information Date of Procedure: 01/07/25 Pre-Operative Diagnosis: Bladder stones small and obstruction of the prostate BPH Post-Operative Diagnosis: The same Surgery/Procedure Performed: Cystolitholapaxy for a small bladder stone and transurethral resection of the prostate applied behavior specialist: No Type of Anesthesia: General RN Documented Start/Stop Times: Operation Date: 01/07/25 07:30 Case Time Into Pre-Op 01/07/25 06:15 Out of Pre-Op 01/07/25 07:15 Anesthesia Start 01/07/25 07:21 Into Room 01/07/25 07:21 Procedure Start 01/07/25 07:36 Procedure End 01/07/25 07:59 Procedure Start Time: 07:36 Procedure Stop Time: 07:59 Select all DRAINS/GRAFTS/IMPLANTS that apply: Drains Drain details: 22 [place] three-way Tam Estimated Blood Loss: Minimal Specimen collected: Yes Description of specimen(s) removed: Prostate tissue Description of surgery: Patient is taken back to the operating with a smooth duction of anesthesia he is placed in dorsolithotomy position went to the bladder with a 24 [place] noncontinuous flow Olympus bipolar resectoscope using saline for irrigation we then looked at the prostate he had of obstructive prostate some of the prostate was touching the midline. 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 I did this because necrosis of the prostate and then encrustation of the prostate tissue from the radiation so then I used a cold loop to break free the stone from the prostate and then I was able to use the hot loop to then break up the stone in pieces and then removed all the stone fragments I then used the resectoscope loop to resect of the right lobe of the prostate resect the left of the prostate open up the prostate channel nicely left and right ureter orifice was intact bladder neck was intact had a nice open flow cauterized to get hemostasis and put a catheter in the bladder with continuous bladder irrigation after successfully resecting the prostate had a nice open flow patient was taken back to the PACU in good condition with a catheter with irrigation with a 22 [place] three-way catheter. Surgical Findings: Stone was removed from the bladder and the bladder neck it was encrusted into the bladder neck Prostate resected open Complications Complications: No Admit VTE Documentation VTE Present on Admission: No VTE Mechan Device Prophylaxis: SCD's VTE Pharm Prophylaxis ordered?: No
--- NOTE | 2025-01-07 08:11 | PCM.POST.ANE ---
Anesthesia: Postop Eval I Current Vital Signs Temperature: 98 F Pulse Rate: 68 Blood Pressure: 146/80 Respiratory Rate: 16 Pulse Ox: 97 Oxygen Delivery Method: Room Air Assessment Airway patent: Yes Spontaneous unlabored respirations: Yes Mental status: Awake and Calm nausea: No Vomiting: No Anesthesia Complication: No Fluid Hydration Crystalloid volume administer (ml): 500 Total IV fluid infused: 500 Progress Note Post-operative progress note: patient tolerated well. Anesthesia document: Postop Eval 1 completed: Yes
--- NOTE | 2025-01-07 09:42 | POSTOPAN2_ITS ---
Anesthesia Postop Eval I Sum Postop Eval Completion status Anesthesia document: Postop Eval 1 completed: Yes Anesthesia Postop Eval I Summary Anesthesia Postop Eval I Summary: Anesthesia Postop Eval I: Assessment Summary Airway patent Yes 01/07/25 08:12 SPANISH INTERPRETER.MEDM Spontaneous unlabored Yes 01/07/25 08:12 SPANISH INTERPRETER.MEDM respirations Mental status Awake,Calm 01/07/25 08:12 SPANISH INTERPRETER.MEDM nausea No 01/07/25 08:12 SPANISH INTERPRETER.MEDM Vomiting No 01/07/25 08:12 SPANISH INTERPRETER.MEDM Anesthesia Postop Eval I: Fluid Summary Crystalloid volume administer 500 01/07/25 08:12 SPANISH INTERPRETER.MEDM (ml) Colloids volume administered ( ml) Blood Product volume administered (ml) Total IV fluid infused 500 01/07/25 08:12 SPANISH INTERPRETER.MEDM Anesthesia Postop Eval I: Summary Notes Anesthesia Complication No 01/07/25 08:12 SPANISH INTERPRETER.MEDM Anesthesia Complication Comment: Post-operative progress note patient tolerated 01/07/25 08:12 SPANISH INTERPRETER.MEDM well. Anesthesia: Postop Eval II Evaluation Mental status: Awake and Calm Pain Level: 1 nausea: No Vomiting: No Complications Anesthesia Complication: No
--- NOTE | 2025-01-07 09:42 | PCM.POSTANE2 ---
Anesthesia Postop Eval I Sum Postop Eval Completion status Anesthesia document: Postop Eval 1 completed: Yes Anesthesia Postop Eval I Summary Anesthesia Postop Eval I Summary: Anesthesia Postop Eval I: Assessment Summary Airway patent Yes 01/07/25 08:12 LICENSE DISTRIBUTOR.MEDM Spontaneous unlabored Yes 01/07/25 08:12 LICENSE DISTRIBUTOR.MEDM respirations Mental status Awake,Calm 01/07/25 08:12 LICENSE DISTRIBUTOR.MEDM nausea No 01/07/25 08:12 LICENSE DISTRIBUTOR.MEDM Vomiting No 01/07/25 08:12 LICENSE DISTRIBUTOR.MEDM Anesthesia Postop Eval I: Fluid Summary Crystalloid volume administer 500 01/07/25 08:12 LICENSE DISTRIBUTOR.MEDM (ml) Colloids volume administered ( ml) Blood Product volume administered (ml) Total IV fluid infused 500 01/07/25 08:12 LICENSE DISTRIBUTOR.MEDM Anesthesia Postop Eval I: Summary Notes Anesthesia Complication No 01/07/25 08:12 LICENSE DISTRIBUTOR.MEDM Anesthesia Complication Comment: Post-operative progress note patient tolerated 01/07/25 08:12 LICENSE DISTRIBUTOR.MEDM well. Anesthesia: Postop Eval II Evaluation Mental status: Awake and Calm Pain Level: 1 nausea: No Vomiting: No Complications Anesthesia Complication: No
[2025-01-07] MEDS: 0.9% Normal Saline (1000mL) 1,000 ML 75 ML IV ×2 (09:48→23:01)
[2025-01-07] MEDS: 0.9% Saline Lock 10 ML Syringe IV (10:01)
[2025-01-08 00:27] VITALS: O2SAT 82
[2025-01-08 00:32] VITALS: O2SAT 95
[2025-01-08 01:46] VITALS: BP 126/72; PULSE 62; RESP 16; TEMP 36.5; O2SAT 97
[2025-01-08 05:45] VITALS: BP 121/68; PULSE 68; RESP 18; TEMP 37; O2SAT 95
--- NOTE | 2025-01-08 07:22 | PCM.DC.SUM ---
Providers Date of Admission: 01/07/25 Date of Discharge: 01/08/25 Primary Care Physician: SYLVESTER AVERY Reason For Visit: Cysto,Transurethral Resection Prostate Medications at Discharge Home Medications diltiazem HCl 240 mg capsule,extended release 24 hr 240 mg PO DAILY BP 11/14/22 lisinopril 20 mg tablet 40 mg PO QHS BP 11/14/22 atorvastatin 20 mg tablet (Lipitor) 20 mg PO QHS CHOLESTEROL 12/26/24 multivitamin (Daily Multi-Vitamin tablet) 1 tab PO DAILY SUPPLEMENT 12/26/24 cephalexin 500 mg capsule 500 mg PO TID #21 caps 01/07/25 Hospital Course Operations TURP Weight / BMI Weight Weight: 107.4 kg Body Mass Index (BMI) 34.9 D/C Instructions Call your doctor if you observe: Fever of 101 or Higher DC O2, CPAP, BIPAP Needs Home O2 Discharge instructions: No Please Follow Up With: Neil Hatch MD When: Call [phone] for an appointment Meaningful Use Info Meaningful Use Meaningful Use Diagnoses (Choose all that apply): None applicable Discharge Plan Admission Admit Date/Time: 01/07/25 08:04 Primary Reason for Your Visit: Transurethral section of the prostate Attending Provider: Neil Hatch Primary Care Provider: HERB WHITTEN Instructions Patient Instructions: TURP, TURP Home Recovery, TURP Hospital Recovery Discharge Orders/Prescriptions Prescriptions: New cephalexin 500 mg capsule 500 mg PO TID Qty: 21 0RF Continued diltiazem HCl 240 mg capsule,extended release 24hr 240 mg PO DAILY Patient Comments: TAKE ONE CAPSULE BY MOUTH EVERY DAY lisinopril 20 mg tablet 40 mg PO QHS Patient Comments: TAKE ONE TABLET BY MOUTH EVERY DAY atorvastatin [Lipitor] 20 mg tablet 20 mg PO QHS multivitamin [Daily Multi-Vitamin] Tablet 1 tab PO DAILY Referrals / Follow Up: HERB WHITTEN NP-C [Primary Care Provider] - Disposition Discharge Orders: Discharge Patient (Routine); Ordered 01/08/25 Ordered By: Dr. Neil Hatch
--- NOTE | 2025-01-08 09:46 | CASEMGMT ---
ANIRUDH CM into pt room, pt denies any homegoing needs. Pt states he feels safe to return home.
[2025-01-08 11:00] VITALS: BP 125/71; PULSE 71; RESP 16; TEMP 36.6; O2SAT 96
== END 2025-01-08 09:10 | disposition home or self-care (01) ==
LOC: SDC 08:27 → MS3 08:27
PROVIDERS: Admitting Provider Urology; PCP Nurse Practitioner Family; Referring Provider Urology; Visit Provider Urology
PROC: (CPT 52601; principal; 2025-01-07 07:20)
DX: N21.0 Calculus in bladder (principal); N40.1 Benign prostatic hyperplasia with lower urinary tract symptoms; N13.8 Other obstructive and reflux uropathy; R31.0 Gross hematuria; Z79.899 Other long term (current) drug therapy
CPT/HCPCS: 52601; 52317; 00914; 88305; 88341; 88342; 96361; 96365; 96366; 99221; A4216; G0378; J0744; J2405